=== PATIENT | male | born 1975 | race African-American/Black ===

== ENCOUNTER 2016-09-12 05:52 | Emergency (ER) | payer SELFPAY ==
[~2016-09-12] VITALS: Ht 167.6 cm; Wt 77.1 kg
--- NOTE | 2016-09-12 06:13 | PHYS DOC ---
Past Medical History Past Medical History: No Pertinent History Past Surgical History: Other Additional Past Surgical Histo: left femur sx Additional Information: 1/2 pack or more per day Alcohol Use: Rarely Drug Use: Cocaine, Marijuana Adult General Chief Complaint Chief Complaint: CHEST WALL PAIN HPI HPI Patient is a 41 year old male who presents with breath, nausea vomiting diarrhea. He states his been going on for approximately a week. He was seen at [facility] on the [place] 3 days ago and had a CT angiogram that was negative at that time that was confirmed by myself. He states his shortness of breath is the same as it was before he went to [facility] ER. He states his chest pain hurts constantly and is made worse when he coughs. He states he is constantly short of breath however he is able to still smoke cigarettes with his shortness of breath. He does smoke cigarettes personally one to 2 packs per days and then for several years. He denies any family history of heart attacks. States the pain is a stress is substernal and does not radiate. Nothing makes it go away however coughing makes it worse. He states he's been having 2-3 loose stools daily for the last 2-3 days but denies any abdominal pain, denies any blood in his vomit or stools. He states he vomited once or twice because he coughs so hard it makes him vomit. He states that he was given a prescription for a pain medicine sounds like hydrocodone and another medicine from [facility] but he could not afford have these filled. Review of Systems Review of Systems Constitutional: Denies fever or chills [] Eyes: Denies change in visual acuity, redness, or eye pain [] HENT: Denies nasal congestion or sore throat [] Respiratory: Positive for cough and shortness of breath Cardiovascular: No additional information not addressed in HPI [] GI: Denies abdominal pain, nausea, vomiting, bloody stools or diarrhea [] : Denies dysuria or hematuria [] Musculoskeletal: Denies back pain or joint pain [] Integument: Denies rash or skin lesions [] Neurologic: Denies headache, focal weakness or sensory changes [] Endocrine: Denies polyuria or polydipsia [] Current Medications Current Medications Current Medications Medications (Trade) Dose Ordered Sig/Avinash Start Time Stop Time Status Last Admin Dose Admin Albuterol Sulfate (Ventolin Neb Soln) 2.5 mg 1X ONCE 09/12/16 08:00 09/12/16 08:01 DC 09/12/16 07:57 2.5 MG Methylprednisolone Sodium Succinate (Solu-Medrol 125mg Vial) 125 mg 1X ONCE 09/12/16 08:00 09/12/16 08:01 DC 09/12/16 07:59 125 MG Sodium Chloride (Iv Sodium Chloride 0.9% 1000ml Bag) 1,000 ml @ 1,000 mls/hr Q1H 09/12/16 06:15 09/12/16 07:14 DC 09/12/16 06:15 1,000 MLS/HR Allergies Allergies Allergies Coded Allergies Type Severity Reaction Last Updated Verified No Known Drug Allergies 07/31/14 No Physical Exam Physical Exam Constitutional: Well developed, well nourished, no acute distress, non-toxic appearance. [] HENT: Normocephalic, atraumatic, bilateral external ears normal, oropharynx moist, no oral exudates, nose normal. [] Eyes: PERRLA, EOMI, conjunctiva normal, no discharge. [] Neck: Normal range of motion, no tenderness, supple, no stridor. [] Cardiovascular:Heart rate regular rhythm, no murmur [] Lungs & Thorax: Bilateral breath sounds clear to auscultation, decreased at the bases [] Abdomen: Bowel sounds normal, soft, no tenderness, no masses, no pulsatile masses. [] Skin: Warm, dry, no erythema, no rash. [] Back: No tenderness, no CVA tenderness. [] Extremities: No tenderness, no cyanosis, no clubbing, ROM intact, no edema. [] Neurologic: Alert and oriented X 3, normal motor function, normal sensory function, no focal deficits noted. [] Psychologic: Affect normal, judgement normal, mood normal. [] Current Patient Data Vital Signs Vital Signs Date Time Temp Pulse Resp B/P Pulse Ox O2 Delivery O2 Flow Rate FiO2 09/12/16 07:58 96 Room Air 09/12/16 06:03 98.8 98 20 144/84 98.8 Lab Values Laboratory Tests Test 09/12/16 06:06 09/12/16 06:30 09/12/16 08:15 White Blood Count 6.5x10^3/uL (4.0-11.0) Red Blood Count 5.12x10^6/uL (4.30-5.70) Hemoglobin 15.1g/dL (13.0-17.5) Hematocrit 46.6% (39.0-53.0) Mean Corpuscular Volume 91fL (79-100) Mean Corpuscular Hemoglobin 30pg (25-35) Mean Corpuscular Hemoglobin Concent 32g/dL (31-37) Red Cell Distribution Width 14.9% (11.5-14.5) H Platelet Count 164x10^3/uL (140-400) Neutrophils (%) (Auto) 49% (31-73) Lymphocytes (%) (Auto) 34% (24-48) Monocytes (%) (Auto) 15% (0-9) H Eosinophils (%) (Auto) 1% (0-3) Basophils (%) (Auto) 1% (0-3) Neutrophils # (Auto) 3.2x10^3uL (1.8-7.7) Lymphocytes # (Auto) 2.2x10^3/uL (1.0-4.8) Monocytes # (Auto) 1.0x10^3/uL (0.0-1.1) Eosinophils # (Auto) 0.1x10^3/uL (0.0-0.7) Basophils # (Auto) 0.1x10^3/uL (0.0-0.2) Prothrombin Time 11.6SEC (11.7-14.0) L Prothrombin Time INR 0.9 (0.8-1.1) Sodium Level 147mmol/L (136-145) H Potassium Level 4.0mmol/L (3.5-5.1) Chloride Level 104mmol/L (98-107) Carbon Dioxide Level 33mmol/L (21-32) H Anion Gap 10 (6-14) Blood Urea Nitrogen 17mg/dL (8-26) Creatinine 1.0mg/dL (0.7-1.3) Estimated GFR (Cockcroft-Gault) 99.2 Glucose Level 120mg/dL (70-99) H Calcium Level 10.3mg/dL (8.5-10.1) H Magnesium Level 2.2mg/dL (1.8-2.4) Total Bilirubin 0.2mg/dL (0.2-1.0) Direct Bilirubin < 0.1mg/dL (0.0-0.2) Aspartate Amino Transferase (AST) 101U/L (15-37) H Alanine Aminotransferase (ALT) 124U/L (16-63) H Alkaline Phosphatase 113U/L (46-116) Creatine Kinase 459U/L (39-308) H Creatine Kinase MB (Mass) 1.7ng/mL (0.0-3.6) Creatine Kinase MB Relative Index 0.4% (0-4) Troponin I Quantitative < 0.017ng/mL (0.000-0.055) HR-Seh-F-Type Natriuretic Peptide 13pg/mL (0-124) Total Protein 8.1g/dL (6.4-8.2) Albumin 3.9g/dL (3.4-5.0) Lipase 242U/L (73-393) Thyroid Stimulating Hormone (TSH) 0.906uIU/mL (0.358-3.74) Urine Collection Type Unknown Urine Color Yellow Urine Clarity Turbid Urine pH 7.5 Urine Specific [place] 1.020 Urine Protein 30mg/dL (NEG-TRACE) Urine Glucose (UA) Negativemg/dL (NEG) Urine Ketones (Stick) Negativemg/dL (NEG) Urine Blood Negative (NEG) Urine Nitrite Negative (NEG) Urine Bilirubin Negative (NEG) Urine Urobilinogen Dipstick 1.0mg/dL (0.2 mg/dL) Urine Leukocyte Esterase Negative (NEG) Urine RBC 0/HPF (0-2) Urine WBC 0/HPF (0-4) Urine Squamous Epithelial Cells Few/LPF Urine Amorphous Sediment Present/HPF Urine Bacteria 0/HPF (0-FEW) O2 Saturation 97% (92-99) Arterial Blood pH 7.44 (7.35-7.45) Arterial Blood pCO2 at Patient Temp 38mmHg (35-46) Arterial Blood pO2 at Patient Temp 89mmHg (75-108) Arterial Blood HCO3 26mmol/L (21-28) Arterial Blood Base Excess 2mmol/L (-3-3) FiO2 21.0 Laboratory Tests 09/12/16 06:06 Laboratory Tests 09/12/16 06:06 EKG EKG EKG shows normal sinus rhythm with a rate of [address] elevations or T-wave inversions, normal axis, QTC 410 ms as interpreted by me. Radiology/Procedures Radiology/Procedures [facility] [address] [place] [address] IMAGING REPORT Signed PATIENT: LUCIANO WAGNER ACCOUNT: [id number] : 1975 LOCATION: ER AGE: 41 SEX: M EXAM STATUS: REG ER ORD. PHYSICIAN: GOLDIE CUENCA MD REASON: chest pain PROCEDURE: PORTABLE CHEST 1V Portable chest, 09/12/2016: History: Mid chest pain The heart size and pulmonary vascularity are normal. The lungs are clear. There is no evidence of pleural fluid. IMPRESSION: No acute cardiopulmonary abnormality is detected. DICTATED and SIGNED BY: ROLO ALMARAZ MD DATE: 09/12/16808 CC: GOLDIE CUENCA MD; NO PCP ~ Impressions: Dyspnea Nausea vomiting Diarrhea Tobacco abuse Course & Med Decision Making Course & Med Decision Making Pertinent Labs and Imaging studies reviewed. (See chart for details) EKG, chest x-ray did not show acute abdomen allergies. He does have slightly elevated LFTs and received normal saline was in the department. He is also given Solu-Medrol and a DuoNeb feels better. He is being discharged home with albuterol inhaler and prednisone. He is to follow-up with his primary care physician or go to the free clinic and does not have one. Return precautions given for worsening fevers, nausea vomiting or other concerns. ABG did not show any acute abnormalities in addition the patient was able to ambulate department and did not become hypoxic. Dragon Disclaimer Dragon Disclaimer This electronic medical record was generated, in whole or in part, using a voice recognition dictation system. Departure Departure Impression: Primary Impression: Dyspnea Disposition: 01 HOME, SELF-CARE Condition: STABLE Referrals: NO PCP (PCP) Patient Instructions: Shortness of Breath, [id number] Additional Instructions: You were seen today in the emergency department for your troubles breathing. Blood work shows your liver function tests are slightly elevated You will need follow-up with primary care physician. You likely have COPD from your continued smoking. You received breathing treatments, steroids, IV fluids and your being discharged home. Provided a prescription for prednisone and an inhaler and an antibiotic. Please follow the instructions on the prescription for these medicines. You can also purchase [id number] Claritin and Imodium AD. Claritin is for your cough and Imodium AD is for diarrhea. Urinary to follow up with your primary care physician within the next few days to have your liver function tests repeated. Return ER for worsening shortness of breath, chest pain , uncontrolled nausea vomiting diarrhea or other concerns. Scripts Azithromycin (Azithromycin Tablet)250 Mg Tablet1 Pkg PO UD #6 TAB Prov:GOLDIE CUENCA MD 09/12/16 Albuterol Sulfate (Proair Hfa Inhaler)8.5 Gm Hfa.aer.ad2 Puff INH PRN Q6HRS PRN SHORTNESS OF BREATH #1 INHALER Ref 0 Prov:GOLDIE CUENCA MD 09/12/16 Prednisone 20 Mg Tablet2 Tab PO DAILY #10 TAB Prov:GOLDIE CUENCA MD 09/12/16 GOLDIE CUENCA MD Sep 12, 2016 06:13
[2016-09-12] MEDS ORDERED: IV NORMAL SALINE 1000ML BAG 1,000 ML IV SCH (06:15)
[2016-09-12 06:38] LABS: BASO # 0.1 x10^3/uL (0.0-0.2); BASO % 1 % (0-3); EOS % 1 % (0-3); HEMATOCRIT 46.6 % (39.0-53.0); HEMOGLOBIN 15.1 g/dL (13.0-17.5); LYMPH # 2.2 x10^3/uL (1.0-4.8); LYMPH % 34 % (24-48); MEAN CORPUSCULAR HEMOGLOBIN 30 pg (25-35); MEAN CORPUSCULAR HGB CONC 32 g/dL (31-37); MEAN CORPUSCULAR VOLUME 91 fL (79-100); MONO % 15 % (0-9); NEUT % 49 % (31-73); PLATELET COUNT 164 x10^3/uL (140-400); RED BLOOD COUNT 5.12 x10^6/uL (4.30-5.70); RED CELL DISTRIBUTION WIDTH 14.9 % (11.5-14.5); WHITE BLOOD COUNT 6.5 x10^3/uL (4.0-11.0)
--- NOTE | 2016-09-12 06:39 | EKG ---
[facility] [address] [place] [address] Test Date: 2016-09-12 Test Time: 06:00:40 Pat Name: LUCIANO WAGNER Department: Room: Gender: M Machine Maintenance Repairer: : 1975 Requested By: GOLDIE CUENCA Order Number: [id number] Reading MD: Leanna Villanueva Measurements Intervals [place] Rate: 94 P: 29 SD: 136 QRS: 70 QRSD: 88 T: 20 QT: 324 QTc: 410 Interpretive Statements SINUS RHYTHM NORMAL ELECTROCARDIOGRAM Electronically Signed On 09-15-2016 12:36:25 CDT by Leanna Villanueva
[2016-09-12 06:46] LABS: INR 0.9 (0.8-1.1); PROTHROMBIN TIME PATIENT 11.6 SEC (11.7-14.0)
[2016-09-12 06:47] LABS: ANION GAP 10 (6-14); BLOOD UREA NITROGEN 17 mg/dL (8-26); CALCIUM 10.3 mg/dL (8.5-10.1); CARBON DIOXIDE 33 mmol/L (21-32); CHLORIDE 104 mmol/L (98-107); GFR 99.2; GLUCOSE 120 mg/dL (70-99); SODIUM 147 mmol/L (136-145)
[2016-09-12 06:53] LABS: ALBUMIN 3.9 g/dL (3.4-5.0); ALK PHOS 113 U/L (46-116); ALT (SGPT) 124 U/L (16-63); AST (SGOT) 101 U/L (15-37); DIRECT BILIRUBIN < 0.1 mg/dL (0.0-0.2); MAGNESIUM 2.2 mg/dL (1.8-2.4); TOTAL BILIRUBIN 0.2 mg/dL (0.2-1.0); TOTAL PROTEIN 8.1 g/dL (6.4-8.2)
[2016-09-12 06:54] LABS: BILIRUBIN,URINE NEGATIVE (NEG); GLUCOSE,URINE NEGATIVE (NEG); NITRITE,URINE NEGATIVE (NEG); PH,URINE 7.5; PROTEIN,URINE 30 mg/dL (NEG-TRACE)
--- NOTE | 2016-09-12 07:15 | RAD ---
Portable chest, 09/12/2016: History: Mid chest pain The heart size and pulmonary vascularity are normal. The lungs are clear. There is no evidence of pleural fluid. IMPRESSION: No acute cardiopulmonary abnormality is detected.
[2016-09-12 07:16] LABS: CKMB INDEX 0.4 % (0-4); CKMB MASS 1.7 ng/mL (0.0-3.6)
[2016-09-12 07:18] LABS: BACTERIA,URINE 0 /HPF (0-FEW); RBC,URINE 0 /HPF (0-2); SQUAMOUS EPITHELIAL CELL,UR FEW /LPF; WBC,URINE 0 /HPF (0-4)
[2016-09-12 08:00] VITALS: BP 136/68
[2016-09-12] MEDS ORDERED: ALBUTEROL SULFATE 2.5 MG/3 ML NEBU. NEB ONE (08:00)
[2016-09-12] MEDS ORDERED: methylPREDNISolone SOD SUCC PF 125 MG/2 ML VIAL. IV ONE (08:00)
[2016-09-12] MEDS ORDERED: PRED20TA PO (08:10)
[2016-09-12] MEDS ORDERED: PROAIR HFA8.5 GM INH (08:10)
[2016-09-12 08:17] LABS: HCO3 ABG 26 mmol/L (21-28); PCO2 ABG 38 mmHg (35-46); PH ABG 7.44 (7.35-7.45); PO2 ABG 89 mmHg (75-108); SAT O2 ABG 97 % (92-99)
[2016-09-12] MEDS ORDERED: AZIT250T6 PO (08:18)
== END 2016-09-12 08:58 | disposition home or self-care (01) ==
LOC: ER 05:52
DX: R06.00 Dyspnea, unspecified (principal); R11.2 Nausea with vomiting, unspecified; R19.7 Diarrhea, unspecified; R05 Cough; R07.2 Precordial pain; F17.210 Nicotine dependence, cigarettes, uncomplicated; F14.10 Cocaine abuse, uncomplicated; F12.10 Cannabis abuse, uncomplicated
CPT/HCPCS: 36415; 36600; 71010; 80048; 80076; 81001; 82553; 82805; 83690; 83735; 83880; 84443; 84484; 85027; 85610; 93005; 94250; 94640; 96361; 96374; 99285; J2930; J7030

== ENCOUNTER 2018-04-17 10:01 | Inpatient (IN) | payer OTHER ==
[~2018-04-17] VITALS: Ht 170.2 cm; Wt 83.6 kg
[~2018-04-17 10:01] MED LIST: AZIT250T6 PO; PRED20TA PO; PROAIR HFA8.5 GM INH
[2018-04-17] MEDS ORDERED: IV NORMAL SALINE 500ML BAG 500 ML IV PRN (10:15)
--- NOTE | 2018-04-17 10:26 | PHYS DOC ---
Past Medical History Past Medical History: No Pertinent History Past Surgical History: Other Additional Past Surgical Histo: left femur sx Alcohol Use: Rarely Drug Use: Cocaine, Marijuana Adult General Chief Complaint Chief Complaint: ABSCESS HPI HPI Patient is a 43 year old male who presents today complaining of an abscess on the right buttock area that he has had for 4-5 days. Patient is an inmate at the local longterm. He states the doctor there has tried to drain the abscess twice with no success. He states he was running a temperature of 102 this morning and was tachycardic and was sent to the ED to be evaluated and possibly be admitted for surgical consult and IV antibiotics. Patient denies any nausea vomiting. Review of Systems Review of Systems Constitutional: Reports fever Eyes: Denies change in visual acuity, redness, or eye pain [] HENT: Denies nasal congestion or sore throat [] Respiratory: Denies cough or shortness of breath [] Cardiovascular: Reports tachycardia GI: Denies abdominal pain, nausea, vomiting, bloody stools or diarrhea [] : Denies dysuria or hematuria [] Musculoskeletal: Denies back pain or joint pain [] Integument: Reports abscess to the right buttock Neurologic: Denies headache, focal weakness or sensory changes [] All other systems were reviewed and found to be within normal limits, except as documented in this note. Current Medications Current Medications Current Medications Medications (Trade) Dose Ordered Sig/Avinash Start Time Stop Time Status Last Admin Dose Admin Acetaminophen/ Hydrocodone Bitart (Lortab 5/325) 2 tab 1X ONCE 04/17/18 10:30 04/17/18 10:31 DC 04/17/18 10:36 2 TAB Info (CONTRAST GIVEN -- Rx MONITORING) 1 each PRN DAILY PRN 04/17/18 11:00 04/19/18 10:59 Iohexol (Omnipaque 300 Mg/ml) 75 ml 1X ONCE 04/17/18 10:45 04/17/18 10:46 DC 04/17/18 10:45 75 ML Piperacillin Sod/ Tazobactam Sod 4.5 gm/Sodium Chloride 100 ml @ 200 mls/hr 1X ONCE 04/17/18 10:45 04/17/18 11:14 DC 04/17/18 11:27 200 MLS/HR Sodium Chloride 500 ml @ 1,000 mls/hr PRN Q30MIN PRN 04/17/18 10:15 Vancomycin HCl (Vanco Per Pharmacy) 1 each PRN DAILY PRN 04/17/18 10:15 UNV Vancomycin HCl 2 gm/Sodium Chloride 500 ml @ 250 mls/hr 1X ONCE 04/17/18 10:45 04/17/18 12:44 04/17/18 12:09 250 MLS/HR Allergies Allergies Allergies Coded Allergies Type Severity Reaction Last Updated Verified No Known Drug Allergies 07/31/14 No Physical Exam Physical Exam Constitutional: Well developed, well nourished, no acute distress, non-toxic appearance. [] HENT: Normocephalic, atraumatic, bilateral external ears normal, oropharynx moist, no oral exudates, nose normal. [] Eyes: PERRLA, EOMI, conjunctiva normal, no discharge. [] Neck: Normal range of motion, no tenderness, supple, no stridor. [] Cardiovascular:Heart rate regular rhythm, no murmur [] Lungs & Thorax: Bilateral breath sounds clear to auscultation [] Abdomen: Bowel sounds normal, soft, no tenderness, no masses, no pulsatile masses. [] Skin: Warm, dry, right inner buttock with a mildly indurated area there is a scab over the buttock. The indurated area is warm to the touch, very tender but not fluctuant. Back: No tenderness, no CVA tenderness. [] Extremities: No tenderness, no cyanosis, no clubbing, ROM intact, no edema. [] Neurologic: Alert and oriented X 3, normal motor function, normal sensory function, no focal deficits noted. [] Psychologic: Affect normal, judgement normal, mood normal. [] Current Patient Data Vital Signs Vital Signs Date Time Temp Pulse Resp B/P (MAP) Pulse Ox O2 Delivery O2 Flow Rate FiO2 04/17/18 12:05 108 19 126/72 (90) 98 04/17/18 10:10 98.5 Room Air 98.5 Lab Values Laboratory Tests Test 04/17/18 10:30 04/17/18 11:17 White Blood Count 24.3 x10^3/uL (4.0-11.0) H Red Blood Count 4.91 x10^6/uL (4.30-5.70) Hemoglobin 14.4 g/dL (13.0-17.5) Hematocrit 41.7 % (39.0-53.0) Mean Corpuscular Volume 85 fL (79-100) Mean Corpuscular Hemoglobin 29 pg (25-35) Mean Corpuscular Hemoglobin Concent 35 g/dL (31-37) Red Cell Distribution Width 12.5 % (11.5-14.5) Platelet Count 174 x10^3/uL (140-400) Neutrophils (%) (Auto) 85 % (31-73) H Lymphocytes (%) (Auto) 7 % (24-48) L Monocytes (%) (Auto) 8 % (0-9) Eosinophils (%) (Auto) 0 % (0-3) Basophils (%) (Auto) 0 % (0-3) Neutrophils # (Auto) 20.6 x10^3uL (1.8-7.7) H Lymphocytes # (Auto) 1.7 x10^3/uL (1.0-4.8) Monocytes # (Auto) 2.0 x10^3/uL (0.0-1.1) H Eosinophils # (Auto) 0.0 x10^3/uL (0.0-0.7) Basophils # (Auto) 0.1 x10^3/uL (0.0-0.2) Segmented Neutrophils % 83 % (35-66) H Band Neutrophils % 6 % (0-9) Lymphocytes % 5 % (24-48) L Monocytes % 6 % (0-10) Platelet Estimate Adequate (ADEQUATE) Prothrombin Time 16.0 SEC (11.7-14.0) H Prothrombin Time INR 1.3 (0.8-1.1) H PTT 35 SEC (24-38) Sodium Level 138 mmol/L (136-145) Potassium Level 3.3 mmol/L (3.5-5.1) L Chloride Level 103 mmol/L (98-107) Carbon Dioxide Level 22 mmol/L (21-32) Anion Gap 13 (6-14) Blood Urea Nitrogen 8 mg/dL (8-26) Creatinine 1.1 mg/dL (0.7-1.3) Estimated GFR (Cockcroft-Gault) 88.0 BUN/Creatinine Ratio 7 (6-20) Glucose Level 120 mg/dL (70-99) H Calcium Level 9.2 mg/dL (8.5-10.1) Total Bilirubin 0.8 mg/dL (0.2-1.0) Aspartate Amino Transferase (AST) 14 U/L (15-37) L Alanine Aminotransferase (ALT) 21 U/L (16-63) Alkaline Phosphatase 79 U/L (46-116) Total Protein 7.7 g/dL (6.4-8.2) Albumin 3.1 g/dL (3.4-5.0) L Albumin/Globulin Ratio 0.7 (1.0-1.7) L Procalcitonin 0.61 ng/mL (0.00-0.10) H Lactic Acid Level 3.1 mmol/L (0.4-2.0) H Laboratory Tests 04/17/18 10:30 Laboratory Tests 04/17/18 10:30 EKG EKG [] Radiology/Procedures Radiology/Procedures []PROCEDURE: CT PELVIS W/CONTRAST CT PELVIS W/CONTRAST Indication: Right buttock mass/abscess Technique: Postcontrast CT imaging was performed of the pelvis, multiplanar reconstruction images submitted. No oral contrast was given. One or more of the following individualized dose reduction techniques were utilized for this examination: 1. Automated exposure control 2. Adjustment of the mA and/or kV according to patient size 3. Use of iterative reconstruction technique. Contrast: 75 cc Omnipaque 300 Comparison: None Findings: There is asymmetric hazy and strandy change of the fat of the medial right thigh proximally although not fully included inferiorly, no discrete drainable fluid collection in this region. No discrete perirectal fluid collection/abscess is identified. There is no intrapelvic free fluid or fluid collection. There is no free air of the visualized pelvis. Visualized bowel is not significantly dilated. There are inguinal nodes bilaterally, largest on the right about 1.2 cm short axis dimension. There are also some subcentimeter nodes along the iliac chains. There is intramedullary debora of the left femur which is not fully evaluated. There is fat-containing umbilical hernia, no bowel, neck about 1.5 cm. There is mild osteoarthritic change of the hips. IMPRESSION: 1. There is nonspecific inflammatory change centered in the fat of the medial right thigh proximally without discrete drainable fluid collection/abscess, inferior extent not fully included. 2. There are nonspecific inguinal nodes bilaterally, largest on the right, nonspecific and possibly reactive although clinical follow-up recommended. 3. There is a small fat-containing umbilical hernia. Electronically signed by: Ellen Bennett MD (04/17/2018 11:48 AM) [id number] DICTATED and SIGNED BY: ELLEN BENNETT MD DATE: 04/17/18 1141 Course & Med Decision Making Course & Med Decision Making Pertinent Labs and Imaging studies reviewed. (See chart for details) This is a 43-year-old male patient residing at the local longterm who presents today with an abscess on the right buttock for 4-5 days. The abscess has been drained twice with no success. Patient was running a fever in longterm today. Patient was started on sepsis protocol on arrival to the ED. WBC 24.3 with a left shift, CMP with no acute findings, lactic 3.1. Vitals on arrival temperature 98.5 patient was given antipyretic prior to coming to the ED , heart rate 121, respiration 18 on room air, O2 sats 99% on room air, blood pressure 141/73. CT of the pelvic was noted for- nonspecific inflammatory change centered in the fat of the medial right thigh proximally without discrete drainable fluid collection/abscess, inferior extent not fully included. Patient was given Zosyn and vancomycin. 12:[address] Euceda who accepted patient for admission 12:[address] Aquino who will follow-up with patient Routine consult placed for infectious disease Dragon Disclaimer Dragon Disclaimer This electronic medical record was generated, in whole or in part, using a voice recognition dictation system. 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
[2018-04-17] MEDS ORDERED: HYDROcodone/APAP 5/325MG 1 TAB TABLET PO ONE (10:30)
[2018-04-17 10:42] LABS: BASO # 0.1 x10^3/uL (0.0-0.2); BASO % 0 % (0-3); EOS % 0 % (0-3); HEMATOCRIT 41.7 % (39.0-53.0); HEMOGLOBIN 14.4 g/dL (13.0-17.5); LYMPH # 1.7 x10^3/uL (1.0-4.8); LYMPH % 7 % (24-48); MEAN CORPUSCULAR HEMOGLOBIN 29 pg (25-35); MEAN CORPUSCULAR HGB CONC 35 g/dL (31-37); MEAN CORPUSCULAR VOLUME 85 fL (79-100); MONO % 8 % (0-9); NEUT # 20.6 x10^3uL (1.8-7.7); NEUT % 85 % (31-73); PLATELET COUNT 174 x10^3/uL (140-400); RED BLOOD COUNT 4.91 x10^6/uL (4.30-5.70); RED CELL DISTRIBUTION WIDTH 12.5 % (11.5-14.5); WHITE BLOOD COUNT 24.3 x10^3/uL (4.0-11.0)
[2018-04-17] MEDS: IV NORMAL SALINE 1000ML BAG 2,040 ML IV SCH ×10 (10:42→19:30)
[2018-04-17] MEDS ORDERED: VANCOMYCIN 2 GM in IV NORMAL SALINE 500ML BAG 500 ML IV ONE (10:45)
[2018-04-17] MEDS ORDERED: PIPERACILLIN/TAZOBACTAM 4.5 GM in IV NORMAL SALINE 100ML 100 ML IV ONE (10:45)
[2018-04-17] MEDS ORDERED: IOHEXOL 300 MG/ML 100ML VIAL. IV ONE (10:45)
[2018-04-17 10:49] LABS: CALCIUM 9.2 mg/dL (8.5-10.1); CREATININE 1.1 mg/dL (0.7-1.3); POTASSIUM 3.3 mmol/L (3.5-5.1)
[2018-04-17 10:56] LABS: ALBUMIN 3.1 g/dL (3.4-5.0); ALBUMIN/GLOBULIN RATIO 0.7 (1.0-1.7); TOTAL BILIRUBIN 0.8 mg/dL (0.2-1.0); TOTAL PROTEIN 7.7 g/dL (6.4-8.2)
[2018-04-17] MEDS ORDERED: CONTRAST GIVEN. MC PRN (11:00)
[2018-04-17 11:11] LABS: % BANDS 6 % (0-9); % LYMPHS 5 % (24-48); % MONOS 6 % (0-10); % SEGS 83 % (35-66)
[2018-04-17 11:12] LABS: PLT ESTIMATE ADEQUATE (ADEQUATE)
--- NOTE | 2018-04-17 11:52 | RAD ---
CT PELVIS W/CONTRAST Indication: Right buttock mass/abscess Technique: Postcontrast CT imaging was performed of the pelvis, multiplanar reconstruction images submitted. No oral contrast was given. One or more of the following individualized dose reduction techniques were utilized for this examination: 1. Automated exposure control 2. Adjustment of the mA and/or kV according to patient size 3. Use of iterative reconstruction technique. Contrast: 75 cc Omnipaque 300 Comparison: None Findings: There is asymmetric hazy and strandy change of the fat of the medial right thigh proximally although not fully included inferiorly, no discrete drainable fluid collection in this region. No discrete perirectal fluid collection/abscess is identified. There is no intrapelvic free fluid or fluid collection. There is no free air of the visualized pelvis. Visualized bowel is not significantly dilated. There are inguinal nodes bilaterally, largest on the right about 1.2 cm short axis dimension. There are also some subcentimeter nodes along the iliac chains. There is intramedullary debora of the left femur which is not fully evaluated. There is fat-containing umbilical hernia, no bowel, neck about 1.5 cm. There is mild osteoarthritic change of the hips. IMPRESSION: 1. There is nonspecific inflammatory change centered in the fat of the medial right thigh proximally without discrete drainable fluid collection/abscess, inferior extent not fully included. 2. There are nonspecific inguinal nodes bilaterally, largest on the right, nonspecific and possibly reactive although clinical follow-up recommended. 3. There is a small fat-containing umbilical hernia. Electronically signed by: Rajendra Hernandez MD (04/17/2018 11:48 AM) [id number]
[2018-04-17] MEDS ORDERED: ONDANSETRON PF 4 MG/2 ML VIAL. IV PRN ×2 (12:30→14:45)
[2018-04-17] MEDS ORDERED: ACETAMINOPHEN 325 MG TABLET. PO PRN ×2 (12:30→14:45)
[2018-04-17] MEDS ORDERED: IV NORMAL SALINE 1000ML BAG 1,000 ML IV ONE (12:30)
--- NOTE | 2018-04-17 12:33 | PDOC2 ---
CONSULT Date of Consult Date of Consult DATE: 04/17/18 TIME: 12:29 Reason for Consult Reason for Consult: Gluteal abscess Identification/Chief Complaint Chief Complaint Left perineum pain Source Source: Patient History of Present Illness Reason for Visit: 43-year-old male who's had about a 4 day history of worsening pain in the left perineal area with some drainage he's had a couple attempts within the assisted system by physician to incise and drain this area without success continues to get worse Past Medical History Cardiovascular: No pertinent hx Pulmonary: No pertinent hx GI: No pertinent hx Heme/Onc: No pertinent hx Hepatobiliary: No pertinent hx Psych: No pertinent hx Rheumatologic: No pertinent hx Infectious disease: No pertinent hx ENT: No pertinent hx Renal/: No pertinent hx Endocrine: No pertinent hx Dermatology: No pertinent hx Past Surgical History Past Surgical History: No pertinent history Family History Family History: Heart Disease Social History ALCOHOL: occassional Drugs: None Current Medications Current Medications Current Medications Sodium Chloride 2,040 ml @ 2,040 mls/hr Q1H IV Last administered on at 10:42; Start 04/17/18 at 10:30 Sodium Chloride 500 ml @ 1,000 mls/hr PRN Q30MIN PRN IV SEE COMMENTS; Start 04/17/18 at 10:15 Vancomycin HCl (Vanco Per Pharmacy) 1 each PRN DAILY PRN [facility] SEE COMMENTS; Start 04/17/18 at 10:15; Status UNV Piperacillin Sod/ Tazobactam Sod 4.5 gm/Sodium Chloride 100 ml @ 200 mls/hr Q6HRS IV ; Start 04/17/18 at 12:00; Status UNV Acetaminophen/ Hydrocodone Bitart (Lortab 5/325) 2 tab 1X ONCE PO Last administered on 04/17/18at 10:36; Start 04/17/18 at 10:30; Stop 04/17/18 at 10 :31; Status DC Vancomycin HCl 2 gm/Sodium Chloride 500 ml @ 250 mls/hr 1X ONCE IV Last administered on 04/17/18at 12:09; Start 04/17/18 at 10:45; Stop 04/17/18 at 12 :44 Piperacillin Sod/ Tazobactam Sod 4.5 gm/Sodium Chloride 100 ml @ 200 mls/hr 1X ONCE IV Last administered on 04/17/18at 11:27; Start 04/17/18 at 10:45; Stop 04/17/18 at 11:14; Status DC Iohexol (Omnipaque 300 Mg/ml) 75 ml 1X ONCE IV Last administered on at 10:45; Start 04/17/18 at 10:45; Stop 04/17/18 at 10:46; Status DC Info (CONTRAST GIVEN -- Rx MONITORING) 1 each PRN DAILY PRN [facility] SEE COMMENTS; Start 04/17/18 at 11:00; Stop 04/19/18 at 10:59 Ondansetron HCl (Zofran) 4 mg PRN Q8HRS PRN IV NAUSEA/VOMITING; Start at 12:30; Stop 04/18/18 at 12:29; Status UNV Morphine Sulfate (Morphine Sulfate) 4 mg PRN Q2HR PRN IV PAIN; Start 04/17/18 at 12:30; Stop 04/18/18 at 12:29; Status UNV Acetaminophen (Tylenol) 650 mg PRN Q4HRS PRN PO FEVER; Start 04/17/18 at 12:30 ; Stop 04/18/18 at 12:29; Status UNV Sodium Chloride 1,000 ml @ 125 mls/hr 1X ONCE IV ; Start 04/17/18 at 12:30; Stop 04/17/18 at 20:29; Status UNV Active Scripts Active Azithromycin Tablet (Azithromycin) 250 Mg Tablet 1 Pkg PO UD Proair Hfa Inhaler (Albuterol Sulfate) 8.5 Gm Hfa.aer.ad 2 Puff INH PRN Q6HRS PRN Prednisone 20 Mg Tablet 2 Tab PO DAILY Allergies Allergies: Coded Allergies: No Known Drug Allergies (Unverified , 07/31/14) ROS Gastrointestinal: Yes Other (peritoneum pain) Physical Exam General: Alert, Oriented X3, Cooperative, moderate distress HEENT: Atraumatic, PERRLA, EOMI Lungs: Clear to auscultation, Normal air movement Heart: Regular rate, No murmurs Abdomen: Normal bowel sounds, Soft, No tenderness Extremities: No clubbing, No edema Skin: Other (area in the perineum by 4 x 4 centimeters erythematous painful to palpation) Vitals VITALS Vital Signs Date Time Temp Pulse Resp B/P (MAP) Pulse Ox O2 Delivery O2 Flow Rate FiO2 04/17/18 12:05 108 19 126/72 (90) 98 04/17/18 10:10 98.5 Room Air 98.5 Labs Labs Laboratory Tests Test 04/17/18 10:30 04/17/18 11:17 White Blood Count 24.3 x10^3/uL (4.0-11.0) Red Blood Count 4.91 x10^6/uL (4.30-5.70) Hemoglobin 14.4 g/dL (13.0-17.5) Hematocrit 41.7 % (39.0-53.0) Mean Corpuscular Volume 85 fL (79-100) Mean Corpuscular Hemoglobin 29 pg (25-35) Mean Corpuscular Hemoglobin Concent 35 g/dL (31-37) Red Cell Distribution Width 12.5 % (11.5-14.5) Platelet Count 174 x10^3/uL (140-400) Neutrophils (%) (Auto) 85 % (31-73) Lymphocytes (%) (Auto) 7 % (24-48) Monocytes (%) (Auto) 8 % (0-9) Eosinophils (%) (Auto) 0 % (0-3) Basophils (%) (Auto) 0 % (0-3) Neutrophils # (Auto) 20.6 x10^3uL (1.8-7.7) Lymphocytes # (Auto) 1.7 x10^3/uL (1.0-4.8) Monocytes # (Auto) 2.0 x10^3/uL (0.0-1.1) Eosinophils # (Auto) 0.0 x10^3/uL (0.0-0.7) Basophils # (Auto) 0.1 x10^3/uL (0.0-0.2) Segmented Neutrophils % 83 % (35-66) Band Neutrophils % 6 % (0-9) Lymphocytes % 5 % (24-48) Monocytes % 6 % (0-10) Platelet Estimate Adequate (ADEQUATE) Prothrombin Time 16.0 SEC (11.7-14.0) Prothromb Time International Ratio 1.3 (0.8-1.1) Activated Partial Thromboplast Time 35 SEC (24-38) Sodium Level 138 mmol/L (136-145) Potassium Level 3.3 mmol/L (3.5-5.1) Chloride Level 103 mmol/L (98-107) Carbon Dioxide Level 22 mmol/L (21-32) Anion Gap 13 (6-14) Blood Urea Nitrogen 8 mg/dL (8-26) Creatinine 1.1 mg/dL (0.7-1.3) Estimated GFR (Cockcroft-Gault) 88.0 BUN/Creatinine Ratio 7 (6-20) Glucose Level 120 mg/dL (70-99) Calcium Level 9.2 mg/dL (8.5-10.1) Total Bilirubin 0.8 mg/dL (0.2-1.0) Aspartate Amino Transf (AST/SGOT) 14 U/L (15-37) Alanine Aminotransferase (ALT/SGPT) 21 U/L (16-63) Alkaline Phosphatase 79 U/L (46-116) Total Protein 7.7 g/dL (6.4-8.2) Albumin 3.1 g/dL (3.4-5.0) Albumin/Globulin Ratio 0.7 (1.0-1.7) Procalcitonin 0.61 ng/mL (0.00-0.10) Lactic Acid Level 3.1 mmol/L (0.4-2.0) Laboratory Tests Test 04/17/18 10:30 04/17/18 11:17 White Blood Count 24.3 x10^3/uL (4.0-11.0) Red Blood Count 4.91 x10^6/uL (4.30-5.70) Hemoglobin 14.4 g/dL (13.0-17.5) Hematocrit 41.7 % (39.0-53.0) Mean Corpuscular Volume 85 fL (79-100) Mean Corpuscular Hemoglobin 29 pg (25-35) Mean Corpuscular Hemoglobin Concent 35 g/dL (31-37) Red Cell Distribution Width 12.5 % (11.5-14.5) Platelet Count 174 x10^3/uL (140-400) Neutrophils (%) (Auto) 85 % (31-73) Lymphocytes (%) (Auto) 7 % (24-48) Monocytes (%) (Auto) 8 % (0-9) Eosinophils (%) (Auto) 0 % (0-3) Basophils (%) (Auto) 0 % (0-3) Neutrophils # (Auto) 20.6 x10^3uL (1.8-7.7) Lymphocytes # (Auto) 1.7 x10^3/uL (1.0-4.8) Monocytes # (Auto) 2.0 x10^3/uL (0.0-1.1) Eosinophils # (Auto) 0.0 x10^3/uL (0.0-0.7) Basophils # (Auto) 0.1 x10^3/uL (0.0-0.2) Segmented Neutrophils % 83 % (35-66) Band Neutrophils % 6 % (0-9) Lymphocytes % 5 % (24-48) Monocytes % 6 % (0-10) Platelet Estimate Adequate (ADEQUATE) Prothrombin Time 16.0 SEC (11.7-14.0) Prothromb Time International Ratio 1.3 (0.8-1.1) Activated Partial Thromboplast Time 35 SEC (24-38) Sodium Level 138 mmol/L (136-145) Potassium Level 3.3 mmol/L (3.5-5.1) Chloride Level 103 mmol/L (98-107) Carbon Dioxide Level 22 mmol/L (21-32) Anion Gap 13 (6-14) Blood Urea Nitrogen 8 mg/dL (8-26) Creatinine 1.1 mg/dL (0.7-1.3) Estimated GFR (Cockcroft-Gault) 88.0 BUN/Creatinine Ratio 7 (6-20) Glucose Level 120 mg/dL (70-99) Calcium Level 9.2 mg/dL (8.5-10.1) Total Bilirubin 0.8 mg/dL (0.2-1.0) Aspartate Amino Transf (AST/SGOT) 14 U/L (15-37) Alanine Aminotransferase (ALT/SGPT) 21 U/L (16-63) Alkaline Phosphatase 79 U/L (46-116) Total Protein 7.7 g/dL (6.4-8.2) Albumin 3.1 g/dL (3.4-5.0) Albumin/Globulin Ratio 0.7 (1.0-1.7) Procalcitonin 0.61 ng/mL (0.00-0.10) Lactic Acid Level 3.1 mmol/L (0.4-2.0) Images Images CT scan shows extensive inflammatory reaction in this area the left peritoneum no discrete drainable abscess by CT scan Assessment/Plan Assessment/Plan Peritoneum abscess left side plan for incision and drainage VICK VALLE MD Apr 17, 2018 12:33
[2018-04-17] MEDS ORDERED: LIDOCAINE 2% PF Vial for OR 5 ML VIAL. ONE (12:43)
[2018-04-17] MEDS ORDERED: PROPOFOL 20 ML IV ONE (12:43)
[2018-04-17] MEDS ORDERED: fentaNYL PF VIAL 100 MCG/2 ML VIAL ONE (12:44)
[2018-04-17] MEDS ORDERED: ROCURONIUM 50 MG/5 ML VIAL. ONE (12:44)
[2018-04-17 13:00] VITALS: BP 118/67
[2018-04-17] MEDS ORDERED: IV RINGERS,LACTATED 1000ML 1,000 ML IV SCH (13:29)
[2018-04-17] MEDS ORDERED: MORPHINE SULFATE 2 MG/ML VIAL. IV PRN (13:30)
[2018-04-17] MEDS ORDERED: fentaNYL PF VIAL 100 MCG/2 ML VIAL IV PRN ×2 (13:30)
[2018-04-17] MEDS ORDERED: HYDROmorphone 2 MG/ML VIAL IV PRN (13:30)
[2018-04-17] MEDS ORDERED: LIDOCAINE 1% PF 2 ML VIAL. ID PRN (13:30)
[2018-04-17] MEDS ORDERED: PROCHLORPERAZINE 10 MG/2 ML VIAL. IV PRN (13:30)
--- NOTE | 2018-04-17 13:50 | PDOC ---
Infectious Disease Note Vital Sign Vital Signs Vital Signs Date Time Temp Pulse Resp B/P (MAP) Pulse Ox O2 Delivery O2 Flow Rate FiO2 04/17/18 13:00 98.3 100 16 118/67 (84) 95 Room Air 98.3 Labs Lab Laboratory Tests Test 04/17/18 10:30 04/17/18 11:17 White Blood Count 24.3 x10^3/uL (4.0-11.0) Red Blood Count 4.91 x10^6/uL (4.30-5.70) Hemoglobin 14.4 g/dL (13.0-17.5) Hematocrit 41.7 % (39.0-53.0) Mean Corpuscular Volume 85 fL (79-100) Mean Corpuscular Hemoglobin 29 pg (25-35) Mean Corpuscular Hemoglobin Concent 35 g/dL (31-37) Red Cell Distribution Width 12.5 % (11.5-14.5) Platelet Count 174 x10^3/uL (140-400) Neutrophils (%) (Auto) 85 % (31-73) Lymphocytes (%) (Auto) 7 % (24-48) Monocytes (%) (Auto) 8 % (0-9) Eosinophils (%) (Auto) 0 % (0-3) Basophils (%) (Auto) 0 % (0-3) Neutrophils # (Auto) 20.6 x10^3uL (1.8-7.7) Lymphocytes # (Auto) 1.7 x10^3/uL (1.0-4.8) Monocytes # (Auto) 2.0 x10^3/uL (0.0-1.1) Eosinophils # (Auto) 0.0 x10^3/uL (0.0-0.7) Basophils # (Auto) 0.1 x10^3/uL (0.0-0.2) Segmented Neutrophils % 83 % (35-66) Band Neutrophils % 6 % (0-9) Lymphocytes % 5 % (24-48) Monocytes % 6 % (0-10) Platelet Estimate Adequate (ADEQUATE) Prothrombin Time 16.0 SEC (11.7-14.0) Prothromb Time International Ratio 1.3 (0.8-1.1) Activated Partial Thromboplast Time 35 SEC (24-38) Sodium Level 138 mmol/L (136-145) Potassium Level 3.3 mmol/L (3.5-5.1) Chloride Level 103 mmol/L (98-107) Carbon Dioxide Level 22 mmol/L (21-32) Anion Gap 13 (6-14) Blood Urea Nitrogen 8 mg/dL (8-26) Creatinine 1.1 mg/dL (0.7-1.3) Estimated GFR (Cockcroft-Gault) 88.0 BUN/Creatinine Ratio 7 (6-20) Glucose Level 120 mg/dL (70-99) Calcium Level 9.2 mg/dL (8.5-10.1) Total Bilirubin 0.8 mg/dL (0.2-1.0) Aspartate Amino Transf (AST/SGOT) 14 U/L (15-37) Alanine Aminotransferase (ALT/SGPT) 21 U/L (16-63) Alkaline Phosphatase 79 U/L (46-116) Total Protein 7.7 g/dL (6.4-8.2) Albumin 3.1 g/dL (3.4-5.0) Albumin/Globulin Ratio 0.7 (1.0-1.7) Procalcitonin 0.61 ng/mL (0.00-0.10) Lactic Acid Level 3.1 mmol/L (0.4-2.0) Objective Assessment Sepsis Leukocytosis Right buttock abscess Lactic acidosis Plan Plan of Care Cont Vanc/Zosyn Dose Clinda F/u labs and cults Await I and D Thank you # [phone] NIKITA BURNETT MD Apr 17, 2018 13:50
[2018-04-17] MEDS ORDERED: BUPIVAC MPF-EPI 0.5%-1:200000 30 ML VIAL. ONE (13:53)
[2018-04-17] MEDS: MORPHINE SULFATE 4 MG/ML VIAL. IV PRN ×2 (13:58→20:50)
[2018-04-17] MEDS: VANCOMYCIN PER PHARMACY MC PRN ×2 (14:08→14:17)
[2018-04-17] MEDS ORDERED: traMADol 50 MG TABLET PO PRN (14:45)
[2018-04-17] MEDS ORDERED: DOCUSATE SODIUM 100 MG CAPSULE. PO PRN (14:45)
[2018-04-17] MEDS: IV NORMAL SALINE 1000ML BAG 1,000 ML IV SCH (14:45)
--- NOTE | 2018-04-17 14:52 | PDOC1 ---
History and Physical Date of Admission Date of Admission 04/17/18 Identification/Chief Complaint Chief Complaint right buttock infection Source Source: Chart review, Patient History of Present Illness History of Present Illness HPI HPI Patient is a 43 year old male who presents today complaining of an abscess on the right buttock area. PT is from [facility]. He said he has had right buttock pain, swelling, some white discharge for 5ds, with T 102, CHills daily. He denies injury or bug biten. The [facility] doc tried to drain the abscess today but failed, sent him here. no abx given in the [facility]. Pt has nausea, watery BM daily, no vomiting, no cough, sob, or chest pain. CT didnot show abscess. wbc 24, LA 3. HR 110S Past Medical History Cardiovascular: No pertinent hx Pulmonary: No pertinent hx GI: No pertinent hx Heme/Onc: No pertinent hx Hepatobiliary: No pertinent hx Psych: No pertinent hx Rheumatologic: No pertinent hx Infectious disease: No pertinent hx ENT: No pertinent hx Renal/: No pertinent hx Endocrine: No pertinent hx Dermatology: No pertinent hx Past Surgical History Past Surgical History: No pertinent history Family History Family History: Heart Disease Social History Smoke: No ALCOHOL: occassional Drugs: None Current Problem List Problem List Problems Medical Problems: (1) Tachycardia Status: Acute Current Medications Current Medications Current Medications Medications (Trade) Dose Ordered Sig/Avinash Start Time Stop Time Status Last Admin Dose Admin Acetaminophen (Tylenol) 650 mg PRN Q4HRS PRN 04/17/18 12:30 04/18/18 12:29 Acetaminophen/ Hydrocodone Bitart (Lortab 5/325) 2 tab 1X ONCE 04/17/18 10:30 04/17/18 10:31 DC 04/17/18 10:36 2 TAB Clindamycin Phosphate 50 ml @ 100 mls/hr Q8HRS 04/17/18 14:00 Fentanyl Citrate (Fentanyl 2ml Vial) 50 mcg PRN Q5MIN PRN 04/17/18 13:30 04/18/18 13:29 Hydromorphone HCl (Dilaudid) 0.5 mg PRN Q10MIN PRN 04/17/18 13:30 04/18/18 13:29 Info (CONTRAST GIVEN -- Rx MONITORING) 1 each PRN DAILY PRN 04/17/18 11:00 04/19/18 10:59 Iohexol (Omnipaque 300 Mg/ml) 75 ml 1X ONCE 04/17/18 10:45 04/17/18 10:46 DC 04/17/18 10:45 75 ML Lidocaine HCl (Lidocaine Pf 2% Vial) 5 ml STK-MED ONCE 04/17/18 12:43 04/17/18 12:44 DC Lidocaine HCl (Xylocaine-Mpf 1% 2ml Vial) 2 ml 1X PRN PRN 04/17/18 13:30 04/18/18 13:29 Morphine Sulfate (Morphine Sulfate) 1 mg PRN Q10MIN PRN 04/17/18 13:30 04/18/18 13:29 Ondansetron HCl (Zofran) 4 mg PRN Q8HRS PRN 04/17/18 12:30 04/18/18 12:29 Piperacillin Sod/ Tazobactam Sod 3.375 gm/Sodium Chloride 50 ml @ 100 mls/hr Q6HRS 04/17/18 18:00 Piperacillin Sod/ Tazobactam Sod 4.5 gm/Sodium Chloride 100 ml @ 200 mls/hr 1X ONCE 04/17/18 10:45 04/17/18 11:14 DC 04/17/18 11:27 200 MLS/HR Prochlorperazine Edisylate (Compazine) 5 mg PACU PRN PRN 04/17/18 13:30 04/18/18 13:29 Propofol 20 ml @ As Directed STK-MED ONCE 04/17/18 12:43 04/17/18 12:44 DC Ringer's Solution 1,000 ml @ 30 mls/hr Q24H 04/17/18 13:29 04/18/18 01:28 Rocuronium [place] (Zemuron) 50 mg STK-MED ONCE 04/17/18 12:44 04/17/18 12:45 DC Sodium Chloride 1,000 ml @ 125 mls/hr 1X ONCE 04/17/18 12:30 04/17/18 20:29 Vancomycin HCl (Vanco Per Pharmacy) 1 each PRN DAILY PRN 04/17/18 10:15 04/17/18 14:17 1 EACH Vancomycin HCl (Vancomycin Trough Level) 1 each 1X ONCE 04/18/18 23:30 04/18/18 23:31 Vancomycin HCl 1.25 gm/Sodium Chloride 250 ml @ 167 mls/hr Q12H 04/18/18 00:00 Vancomycin HCl 2 gm/Sodium Chloride 500 ml @ 250 mls/hr 1X ONCE 04/17/18 10:45 04/17/18 12:44 DC 04/17/18 12:09 250 MLS/HR Allergies Allergies Allergies Coded Allergies Type Severity Reaction Last Updated Verified No Known Drug Allergies 07/31/14 No ROS Review of System CONSTITUTIONAL: No fever or chills EYES: No recent changes SKIN: No rash or itching CARDIOVASCULAR: No chest pain, syncope, palpitations, or edema RESPIRATORY: No SOB or cough GASTROINTESTINAL: No nausea, vomiting or abdominal pain NEUROLOGICAL: No headaches or weakness ENDOCRINE: No cold or heat intolerance GENITOURINARY: No urgency or frequency of urination MUSCULOSKELETAL: No back pain or joint pain LYMPHATICS: No enlarged lymph nodes PSYCHIATRIC: No anxiety or depression Physical Exam Physical Exam GEN.: No apparent distress. Alert and oriented. HEENT: Head is normocephalic, atraumatic NECK: Supple. LUNGS: Clear to auscultation. HEART: RRR, S1, S2 present. Peripheral pulses intact ABDOMEN: Soft, nontender. Positive bowel sounds. EXTREMITIES: medial aspect of rt thigh has a big induration, red, some small skin opening , tenderness. NEUROLOGIC: Normal speech, normal tone PSYCHIATRIC: Normal affect, normal mood. SKIN: No ulcerations Vitals Vitals Vital Signs Date Time Temp Pulse Resp B/P (MAP) Pulse Ox O2 Delivery O2 Flow Rate FiO2 04/17/18 13:58 Room Air 04/17/18 13:00 98.3 100 16 118/67 (84) 95 98.3 Labs Labs Laboratory Tests Test 04/17/18 10:30 04/17/18 11:17 White Blood Count 24.3 x10^3/uL (4.0-11.0) Red Blood Count 4.91 x10^6/uL (4.30-5.70) Hemoglobin 14.4 g/dL (13.0-17.5) Hematocrit 41.7 % (39.0-53.0) Mean Corpuscular Volume 85 fL (79-100) Mean Corpuscular Hemoglobin 29 pg (25-35) Mean Corpuscular Hemoglobin Concent 35 g/dL (31-37) Red Cell Distribution Width 12.5 % (11.5-14.5) Platelet Count 174 x10^3/uL (140-400) Neutrophils (%) (Auto) 85 % (31-73) Lymphocytes (%) (Auto) 7 % (24-48) Monocytes (%) (Auto) 8 % (0-9) Eosinophils (%) (Auto) 0 % (0-3) Basophils (%) (Auto) 0 % (0-3) Neutrophils # (Auto) 20.6 x10^3uL (1.8-7.7) Lymphocytes # (Auto) 1.7 x10^3/uL (1.0-4.8) Monocytes # (Auto) 2.0 x10^3/uL (0.0-1.1) Eosinophils # (Auto) 0.0 x10^3/uL (0.0-0.7) Basophils # (Auto) 0.1 x10^3/uL (0.0-0.2) Segmented Neutrophils % 83 % (35-66) Band Neutrophils % 6 % (0-9) Lymphocytes % 5 % (24-48) Monocytes % 6 % (0-10) Platelet Estimate Adequate (ADEQUATE) Prothrombin Time 16.0 SEC (11.7-14.0) Prothromb Time International Ratio 1.3 (0.8-1.1) Activated Partial Thromboplast Time 35 SEC (24-38) Sodium Level 138 mmol/L (136-145) Potassium Level 3.3 mmol/L (3.5-5.1) Chloride Level 103 mmol/L (98-107) Carbon Dioxide Level 22 mmol/L (21-32) Anion Gap 13 (6-14) Blood Urea Nitrogen 8 mg/dL (8-26) Creatinine 1.1 mg/dL (0.7-1.3) Estimated GFR (Cockcroft-Gault) 88.0 BUN/Creatinine Ratio 7 (6-20) Glucose Level 120 mg/dL (70-99) Calcium Level 9.2 mg/dL (8.5-10.1) Total Bilirubin 0.8 mg/dL (0.2-1.0) Aspartate Amino Transf (AST/SGOT) 14 U/L (15-37) Alanine Aminotransferase (ALT/SGPT) 21 U/L (16-63) Alkaline Phosphatase 79 U/L (46-116) Total Protein 7.7 g/dL (6.4-8.2) Albumin 3.1 g/dL (3.4-5.0) Albumin/Globulin Ratio 0.7 (1.0-1.7) Procalcitonin 0.61 ng/mL (0.00-0.10) Lactic Acid Level 3.1 mmol/L (0.4-2.0) Laboratory Tests Test 04/17/18 10:30 04/17/18 11:17 White Blood Count 24.3 x10^3/uL (4.0-11.0) Red Blood Count 4.91 x10^6/uL (4.30-5.70) Hemoglobin 14.4 g/dL (13.0-17.5) Hematocrit 41.7 % (39.0-53.0) Mean Corpuscular Volume 85 fL (79-100) Mean Corpuscular Hemoglobin 29 pg (25-35) Mean Corpuscular Hemoglobin Concent 35 g/dL (31-37) Red Cell Distribution Width 12.5 % (11.5-14.5) Platelet Count 174 x10^3/uL (140-400) Neutrophils (%) (Auto) 85 % (31-73) Lymphocytes (%) (Auto) 7 % (24-48) Monocytes (%) (Auto) 8 % (0-9) Eosinophils (%) (Auto) 0 % (0-3) Basophils (%) (Auto) 0 % (0-3) Neutrophils # (Auto) 20.6 x10^3uL (1.8-7.7) Lymphocytes # (Auto) 1.7 x10^3/uL (1.0-4.8) Monocytes # (Auto) 2.0 x10^3/uL (0.0-1.1) Eosinophils # (Auto) 0.0 x10^3/uL (0.0-0.7) Basophils # (Auto) 0.1 x10^3/uL (0.0-0.2) Segmented Neutrophils % 83 % (35-66) Band Neutrophils % 6 % (0-9) Lymphocytes % 5 % (24-48) Monocytes % 6 % (0-10) Platelet Estimate Adequate (ADEQUATE) Prothrombin Time 16.0 SEC (11.7-14.0) Prothromb Time International Ratio 1.3 (0.8-1.1) Activated Partial Thromboplast Time 35 SEC (24-38) Sodium Level 138 mmol/L (136-145) Potassium Level 3.3 mmol/L (3.5-5.1) Chloride Level 103 mmol/L (98-107) Carbon Dioxide Level 22 mmol/L (21-32) Anion Gap 13 (6-14) Blood Urea Nitrogen 8 mg/dL (8-26) Creatinine 1.1 mg/dL (0.7-1.3) Estimated GFR (Cockcroft-Gault) 88.0 BUN/Creatinine Ratio 7 (6-20) Glucose Level 120 mg/dL (70-99) Calcium Level 9.2 mg/dL (8.5-10.1) Total Bilirubin 0.8 mg/dL (0.2-1.0) Aspartate Amino Transf (AST/SGOT) 14 U/L (15-37) Alanine Aminotransferase (ALT/SGPT) 21 U/L (16-63) Alkaline Phosphatase 79 U/L (46-116) Total Protein 7.7 g/dL (6.4-8.2) Albumin 3.1 g/dL (3.4-5.0) Albumin/Globulin Ratio 0.7 (1.0-1.7) Procalcitonin 0.61 ng/mL (0.00-0.10) Lactic Acid Level 3.1 mmol/L (0.4-2.0) VTE Prophylaxis Ordered VTE Prophylaxis Devices: Yes VTE Pharmacological Prophylaxi: No Assessment/Plan Assessment/Plan rt buttock cellulitis/abscess from [facility] h/o drug use with cocaine, marijuana sepsis hypokalemia mild malnutrition plan: fu with Sx, i and d planed, npo for now ivf fu with id, on zosyn, vanco, clinda. fu cx after sx. pain control replete K dvt ppx after sx, tmr? ELMIRA GARZON MD Apr 17, 2018 14:52
[2018-04-17 15:00] VITALS: BP_SYST 123; BP_SYST 97; BP_DIAS 67; BP_DIAS 83
[2018-04-17] MEDS ORDERED: POTASSIUM CHLORIDE 20 MEQ TABLET.ER. PO ONE (15:00)
[2018-04-17] MEDS ORDERED: DEXAMETHASONE SOD PHOS 20 MG/5 ML VIAL. ONE (15:49)
[2018-04-17] MEDS ORDERED: SEVOFLURANE 16 TO 30 MINUTES. IH ONE (15:49)
[2018-04-17] MEDS ORDERED: ONDANSETRON PF 4 MG/2 ML VIAL. ONE (15:50)
[2018-04-17] MEDS: CLINDAMYCIN 600MG PREMIX 50 ML IV SCH ×2 (15:52→21:44)
--- NOTE | 2018-04-17 16:09 | PDOC4 ---
Operative Note Operative Note Date: 04/17/2018 Preoperative diagnosis: Right perirectal abscess Postoperative diagnosis: The same Procedure: Incision and drainage of right perirectal abscess Surgeon: Miles Specimen: Cultures Dictation: Patient is a 43-year-old male who last 4 days having enlarging mass in the right perirectal area consistent with a abscess procedure of incision and drainage of abscess was explained to the patient detail was benefits were also discussed including bleeding infection alternatives to this procedure also discussed with the patient seemed understanding gave both verbal and written consent had procedure performed. Patient was taken to the operating room placed in supine position general anesthesia was initiated once patient was asleep and intubated is placed in low lithotomy and his peritoneum was prepped and draped in usual sterile fashion with Betadine scrub and solution. Area over the mass in the right perirectal space was incised with a 11 blade scalpel. Some purulent material was expressed this was cultured the wound was then irrigated with copious amounts of normal saline. Wound was then packed with half-inch iodoform Nu Gauze rest with 4 x 4's. The patient was waken expanded in the operative room taken recovery in stable condition all sponge instrument needle counts listed as correct estimate blood loss 10 mL VICK VALLE MD Apr 17, 2018 16:09
[2018-04-17] MEDS: oxyCODONE/APAP 5/325 1 TAB TABLET PO PRN ×2 (16:52→23:49)
[2018-04-17] MEDS: PIPERACILLIN/TAZOBACTAM 3.375 GM in IV NORMAL SALINE 50ML 50 ML IV SCH (18:36)
[2018-04-17 19:00] VITALS: BP 126/77
[2018-04-17 23:00] VITALS: BP 123/86
--- NOTE | 2018-04-17 23:39 | CONS ---
DATE OF CONSULTATION: 04/17/2018 ROOM: 418. CONSULTING PHYSICIAN: Sonali Toure, nurse practitioner from the Emergency Room. REASON FOR CONSULTATION: Sepsis. HISTORY OF PRESENT ILLNESS: The patient is a 43-year-old gentleman, currently in custody, who has a history of previous boils in the past. He states he normally just ruptures these without any complication. Now 4 or 5 days ago, he developed a small boil in his right buttock area, which he popped. He states he got some yellow bloody material out of it, has healed; however, there is an area below this that subsequently increased in size and became more painful. He has subjective fevers, chills, some sweats. He had headache, mild nausea, no vomiting, little bit of a cough and has been having some mild distention. He was brought to [facility] Emergency Room on and had a white count of 24.3 with ____ segs and 6 bands. Glucose was 120. Lactic acid was elevated at 3.1. Creatinine was 1.1, procalcitonin was 0.61. He underwent a CT scan of the pelvis, which showed nonspecific inflammatory change medial right thigh proximal without discrete drainable collection of the abscess and a small fat-containing umbilical hernia. He was placed on vancomycin, Zosyn and has been admitted to the hospital. He has now been evaluated by Dr. Aqunio of General Surgery and is planning to undergo an I and D. PAST MEDICAL HISTORY: Essentially negative except for previously left femur fracture repair. Denies any other complications. REVIEW OF SYSTEMS: Otherwise negative. ALLERGIES: No known drug allergies. SOCIAL HISTORY: He has a history of previous cocaine and marijuana use. Rare alcohol. Currently, he is incarcerated. FAMILY HISTORY: Noncontributory. CURRENT MEDICATIONS: Include Zosyn, vancomycin, fentanyl, Dilaudid. Other meds are available, have been reviewed in the chart. PHYSICAL EXAMINATION: VITAL SIGNS: He is afebrile. Temperature 98.3, pulse 100, respirations 16, blood pressure 118/67, satting 95% on room air. CONSTITUTIONAL: He is comfortable. He is in no acute distress. HEENT: Pupils equal and reactive. Normal conjunctivae. Oral cavity, pharynx is clear. NECK: Supple. Good range of motion. LUNGS: Clear to auscultation bilaterally. HEART: S1, S2. ABDOMEN: Mildly protuberant, soft, no guarding, no tenderness. EXTREMITIES: No clubbing, cyanosis or gross edema. SKIN: Multiple tattoos. No generalized rash. His right perineal/perirectal area has fullness and some induration, tenderness. He also has a healing scab in the area. PSYCHIATRIC: Affect is appropriate. LABORATORY DATA: White count 24.3, hemoglobin 14.4, platelets 174 with a differential as mentioned in history of present illness. Glucose 120. Normal liver function study tests. Other values reviewed in history of present illness. Urinalysis is without signs of infection. Radiology reviewed in history of present illness. IMPRESSION: 1. Sepsis. 2. Leukocytosis. 3. Right buttock abscess. 4. Lactic acidosis. RECOMMENDATIONS: Continue the vancomycin. Continue Zosyn. We will dose clindamycin. Follow up labs and cultures and await I and D. Thank you for allowing me to participate in the patient's care. Should you have any questions, please do not hesitate to contact me. NIKITA BURNETT MD DR: SEVEN/sukh JOB#: [id number] / [id number]
[2018-04-17] MEDS: MORPHINE SULFATE 2 MG/ML VIAL. IV PRN (23:49)
[2018-04-18] VITALS (7 sets, daily range): BP systolic 97–150; BP diastolic 54–84
[2018-04-18] MEDS: IV NORMAL SALINE 1000ML BAG 1,000 ML IV SCH ×5 (00:43→20:23)
[2018-04-18] MEDS: PIPERACILLIN/TAZOBACTAM 3.375 GM in IV NORMAL SALINE 50ML 50 ML IV SCH ×5 (00:44→23:34)
[2018-04-18] MEDS: VANCOMYCIN 1.25 GM in IV NORMAL SALINE 250ML 250 ML IV SCH ×4 (00:44→13:32)
[2018-04-18 04:35] LABS: BASO % 0 % (0-3); EOS % 0 % (0-3); HEMATOCRIT 39.4 % (39.0-53.0); HEMOGLOBIN 13.3 g/dL (13.0-17.5); LYMPH # 0.9 x10^3/uL (1.0-4.8); LYMPH % 4 % (24-48); MEAN CORPUSCULAR HEMOGLOBIN 29 pg (25-35); MEAN CORPUSCULAR HGB CONC 34 g/dL (31-37); MEAN CORPUSCULAR VOLUME 86 fL (79-100); MONO # 1.3 x10^3/uL (0.0-1.1); MONO % 5 % (0-9); NEUT # 22.6 x10^3uL (1.8-7.7); NEUT % 91 % (31-73); PLATELET COUNT 168 x10^3/uL (140-400); RED BLOOD COUNT 4.59 x10^6/uL (4.30-5.70); RED CELL DISTRIBUTION WIDTH 12.6 % (11.5-14.5); WHITE BLOOD COUNT 24.8 x10^3/uL (4.0-11.0)
[2018-04-18 05:03] LABS: CALCIUM 8.9 mg/dL (8.5-10.1); CREATININE 1.1 mg/dL (0.7-1.3); POTASSIUM 3.7 mmol/L (3.5-5.1)
[2018-04-18] MEDS: oxyCODONE/APAP 5/325 1 TAB TABLET PO PRN ×4 (05:47→20:23)
[2018-04-18] MEDS: CLINDAMYCIN 600MG PREMIX 50 ML IV SCH ×3 (06:28→21:59)
--- NOTE | 2018-04-18 08:36 | PDOC ---
SURGICAL PROGRESS NOTE Subjective Patient doing better does complain of some achy pains Vital Signs Vital Signs Date Time Temp Pulse Resp B/P (MAP) Pulse Ox O2 Delivery O2 Flow Rate FiO2 04/18/18 07:09 18 Room Air 04/18/18 07:00 98.1 90 126/80 (95) 97 98.1 04/17/18 16:17 10 I&O Intake and Output 04/18/18 07:00 Intake Total 1660 ml Output Total 700 ml Balance 960 ml Intake Oral 610 ml IV Total 1050 ml Output Urine Total 700 ml PATIENT HAS A CONNOR: No General: Alert, Oriented X3, Cooperative, mild distress Skin: Other (wound dressed with packing) Labs Laboratory Tests Test 04/17/18 10:30 04/17/18 11:17 04/17/18 19:00 04/18/18 03:45 White Blood Count 24.3 x10^3/uL (4.0-11.0) 24.8 x10^3/uL (4.0-11.0) Red Blood Count 4.91 x10^6/uL (4.30-5.70) 4.59 x10^6/uL (4.30-5.70) Hemoglobin 14.4 g/dL (13.0-17.5) 13.3 g/dL (13.0-17.5) Hematocrit 41.7 % (39.0-53.0) 39.4 % (39.0-53.0) Mean Corpuscular Volume 85 fL (79-100) 86 fL (79-100) Mean Corpuscular Hemoglobin 29 pg (25-35) 29 pg (25-35) Mean Corpuscular Hemoglobin Concent 35 g/dL (31-37) 34 g/dL (31-37) Red Cell Distribution Width 12.5 % (11.5-14.5) 12.6 % (11.5-14.5) Platelet Count 174 x10^3/uL (140-400) 168 x10^3/uL (140-400) Neutrophils (%) (Auto) 85 % (31-73) 91 % (31-73) Lymphocytes (%) (Auto) 7 % (24-48) 4 % (24-48) Monocytes (%) (Auto) 8 % (0-9) 5 % (0-9) Eosinophils (%) (Auto) 0 % (0-3) 0 % (0-3) Basophils (%) (Auto) 0 % (0-3) 0 % (0-3) Neutrophils # (Auto) 20.6 x10^3uL (1.8-7.7) 22.6 x10^3uL (1.8-7.7) Lymphocytes # (Auto) 1.7 x10^3/uL (1.0-4.8) 0.9 x10^3/uL (1.0-4.8) Monocytes # (Auto) 2.0 x10^3/uL (0.0-1.1) 1.3 x10^3/uL (0.0-1.1) Eosinophils # (Auto) 0.0 x10^3/uL (0.0-0.7) 0.0 x10^3/uL (0.0-0.7) Basophils # (Auto) 0.1 x10^3/uL (0.0-0.2) 0.0 x10^3/uL (0.0-0.2) Segmented Neutrophils % 83 % (35-66) Band Neutrophils % 6 % (0-9) Lymphocytes % 5 % (24-48) Monocytes % 6 % (0-10) Platelet Estimate Adequate (ADEQUATE) Prothrombin Time 16.0 SEC (11.7-14.0) Prothromb Time International Ratio 1.3 (0.8-1.1) Activated Partial Thromboplast Time 35 SEC (24-38) Sodium Level 138 mmol/L (136-145) 142 mmol/L (136-145) Potassium Level 3.3 mmol/L (3.5-5.1) 3.7 mmol/L (3.5-5.1) Chloride Level 103 mmol/L (98-107) 104 mmol/L (98-107) Carbon Dioxide Level 22 mmol/L (21-32) 25 mmol/L (21-32) Anion Gap 13 (6-14) 13 (6-14) Blood Urea Nitrogen 8 mg/dL (8-26) 11 mg/dL (8-26) Creatinine 1.1 mg/dL (0.7-1.3) 1.1 mg/dL (0.7-1.3) Estimated GFR (Cockcroft-Gault) 88.0 88.0 BUN/Creatinine Ratio 7 (6-20) Glucose Level 120 mg/dL (70-99) 191 mg/dL (70-99) Calcium Level 9.2 mg/dL (8.5-10.1) 8.9 mg/dL (8.5-10.1) Total Bilirubin 0.8 mg/dL (0.2-1.0) Aspartate Amino Transf (AST/SGOT) 14 U/L (15-37) Alanine Aminotransferase (ALT/SGPT) 21 U/L (16-63) Alkaline Phosphatase 79 U/L (46-116) Total Protein 7.7 g/dL (6.4-8.2) Albumin 3.1 g/dL (3.4-5.0) Albumin/Globulin Ratio 0.7 (1.0-1.7) Procalcitonin 0.61 ng/mL (0.00-0.10) Lactic Acid Level 3.1 mmol/L (0.4-2.0) 1.6 mmol/L (0.4-2.0) 2.8 mmol/L (0.4-2.0) Laboratory Tests Test 04/17/18 10:30 04/17/18 11:17 04/17/18 19:00 04/18/18 03:45 White Blood Count 24.3 x10^3/uL (4.0-11.0) 24.8 x10^3/uL (4.0-11.0) Red Blood Count 4.91 x10^6/uL (4.30-5.70) 4.59 x10^6/uL (4.30-5.70) Hemoglobin 14.4 g/dL (13.0-17.5) 13.3 g/dL (13.0-17.5) Hematocrit 41.7 % (39.0-53.0) 39.4 % (39.0-53.0) Mean Corpuscular Volume 85 fL (79-100) 86 fL (79-100) Mean Corpuscular Hemoglobin 29 pg (25-35) 29 pg (25-35) Mean Corpuscular Hemoglobin Concent 35 g/dL (31-37) 34 g/dL (31-37) Red Cell Distribution Width 12.5 % (11.5-14.5) 12.6 % (11.5-14.5) Platelet Count 174 x10^3/uL (140-400) 168 x10^3/uL (140-400) Neutrophils (%) (Auto) 85 % (31-73) 91 % (31-73) Lymphocytes (%) (Auto) 7 % (24-48) 4 % (24-48) Monocytes (%) (Auto) 8 % (0-9) 5 % (0-9) Eosinophils (%) (Auto) 0 % (0-3) 0 % (0-3) Basophils (%) (Auto) 0 % (0-3) 0 % (0-3) Neutrophils # (Auto) 20.6 x10^3uL (1.8-7.7) 22.6 x10^3uL (1.8-7.7) Lymphocytes # (Auto) 1.7 x10^3/uL (1.0-4.8) 0.9 x10^3/uL (1.0-4.8) Monocytes # (Auto) 2.0 x10^3/uL (0.0-1.1) 1.3 x10^3/uL (0.0-1.1) Eosinophils # (Auto) 0.0 x10^3/uL (0.0-0.7) 0.0 x10^3/uL (0.0-0.7) Basophils # (Auto) 0.1 x10^3/uL (0.0-0.2) 0.0 x10^3/uL (0.0-0.2) Segmented Neutrophils % 83 % (35-66) Band Neutrophils % 6 % (0-9) Lymphocytes % 5 % (24-48) Monocytes % 6 % (0-10) Platelet Estimate Adequate (ADEQUATE) Prothrombin Time 16.0 SEC (11.7-14.0) Prothromb Time International Ratio 1.3 (0.8-1.1) Activated Partial Thromboplast Time 35 SEC (24-38) Sodium Level 138 mmol/L (136-145) 142 mmol/L (136-145) Potassium Level 3.3 mmol/L (3.5-5.1) 3.7 mmol/L (3.5-5.1) Chloride Level 103 mmol/L (98-107) 104 mmol/L (98-107) Carbon Dioxide Level 22 mmol/L (21-32) 25 mmol/L (21-32) Anion Gap 13 (6-14) 13 (6-14) Blood Urea Nitrogen 8 mg/dL (8-26) 11 mg/dL (8-26) Creatinine 1.1 mg/dL (0.7-1.3) 1.1 mg/dL (0.7-1.3) Estimated GFR (Cockcroft-Gault) 88.0 88.0 BUN/Creatinine Ratio 7 (6-20) Glucose Level 120 mg/dL (70-99) 191 mg/dL (70-99) Calcium Level 9.2 mg/dL (8.5-10.1) 8.9 mg/dL (8.5-10.1) Total Bilirubin 0.8 mg/dL (0.2-1.0) Aspartate Amino Transf (AST/SGOT) 14 U/L (15-37) Alanine Aminotransferase (ALT/SGPT) 21 U/L (16-63) Alkaline Phosphatase 79 U/L (46-116) Total Protein 7.7 g/dL (6.4-8.2) Albumin 3.1 g/dL (3.4-5.0) Albumin/Globulin Ratio 0.7 (1.0-1.7) Procalcitonin 0.61 ng/mL (0.00-0.10) Lactic Acid Level 3.1 mmol/L (0.4-2.0) 1.6 mmol/L (0.4-2.0) 2.8 mmol/L (0.4-2.0) Problem List Problems Medical Problems: (1) Tachycardia Status: Acute Assessment/Plan Status post I&D of right peritoneum abscess Continue IV antibiotics per ID follow-up on cultures Consult wound care nurse VICK VALLE MD Apr 18, 2018 08:36
[2018-04-18] MEDS: MORPHINE SULFATE 2 MG/ML VIAL. IV PRN ×3 (10:40→17:49)
--- NOTE | 2018-04-18 11:24 | PDOC ---
Infectious Disease Note Subjective Subjective s/p I and D c/o pain Denies N/V/D/constipation Subjective fever ROS ROS per HPI otherwise neg Vital Sign Vital Signs Vital Signs Date Time Temp Pulse Resp B/P (MAP) Pulse Ox O2 Delivery O2 Flow Rate FiO2 04/18/18 10:40 16 Room Air 04/18/18 07:00 98.1 90 126/80 (95) 97 98.1 04/17/18 16:17 10 Physical Exam PHYSICAL EXAM GENERAL: Propped up in bed, alert, NAD HEENT: Pupils equal and reactive. Normal conjunctivae. Oral cavity, pharynx is clear. NECK: Supple. Good range of motion. LUNGS: Clear to auscultation bilaterally. HEART: S1, S2. ABDOMEN: Mildly protuberant, soft, no guarding, no tenderness. EXTREMITIES: No clubbing, cyanosis or gross edema. SKIN: Multiple tattoos. No generalized rash. Post-op dressing Labs Lab Laboratory Tests Test 04/17/18 19:00 04/18/18 03:45 04/18/18 08:50 Lactic Acid Level 1.6 mmol/L (0.4-2.0) 2.8 mmol/L (0.4-2.0) 3.0 mmol/L (0.4-2.0) White Blood Count 24.8 x10^3/uL (4.0-11.0) Red Blood Count 4.59 x10^6/uL (4.30-5.70) Hemoglobin 13.3 g/dL (13.0-17.5) Hematocrit 39.4 % (39.0-53.0) Mean Corpuscular Volume 86 fL (79-100) Mean Corpuscular Hemoglobin 29 pg (25-35) Mean Corpuscular Hemoglobin Concent 34 g/dL (31-37) Red Cell Distribution Width 12.6 % (11.5-14.5) Platelet Count 168 x10^3/uL (140-400) Neutrophils (%) (Auto) 91 % (31-73) Lymphocytes (%) (Auto) 4 % (24-48) Monocytes (%) (Auto) 5 % (0-9) Eosinophils (%) (Auto) 0 % (0-3) Basophils (%) (Auto) 0 % (0-3) Neutrophils # (Auto) 22.6 x10^3uL (1.8-7.7) Lymphocytes # (Auto) 0.9 x10^3/uL (1.0-4.8) Monocytes # (Auto) 1.3 x10^3/uL (0.0-1.1) Eosinophils # (Auto) 0.0 x10^3/uL (0.0-0.7) Basophils # (Auto) 0.0 x10^3/uL (0.0-0.2) Sodium Level 142 mmol/L (136-145) Potassium Level 3.7 mmol/L (3.5-5.1) Chloride Level 104 mmol/L (98-107) Carbon Dioxide Level 25 mmol/L (21-32) Anion Gap 13 (6-14) Blood Urea Nitrogen 11 mg/dL (8-26) Creatinine 1.1 mg/dL (0.7-1.3) Estimated GFR (Cockcroft-Gault) 88.0 Glucose Level 191 mg/dL (70-99) Calcium Level 8.9 mg/dL (8.5-10.1) Micro BLOOD CULTURE Preliminary NO GROWTH AFTER 1 DAY Objective Assessment Sepsis. Leukocytosis - stable Right buttock abscess. s/p I and D on 04/17. Intra-op cultures pending Lactic acidosis. Plan Plan of Care Cont Vanc, Zosyn and clinda Awaiting culture results Monitor labs/temp/renal function Pain management per primary D/w RN Attending Co-Sign The patient was seen and interviewed as well as examined at the bedside. The chart was reviewed. The case was discussed. Agree with the plan of care. MOLLY QUIÑONES APRN Apr 18, 2018 11:24 SHANI ORTIZ MD Apr 18, 2018 12:04
--- NOTE | 2018-04-18 15:14 | PDOC ---
PROGRESS NOTES Chief Complaint Chief Complaint Sepsis Right gluteal abscess History of Present Illness History of Present Illness Patient is a 43 year old male w/ no significant PMHx admitted c/o an abscess on the right buttock area. S/p ID on 04/17/18. He said he has had right buttock pain, swelling, some white discharge for 5ds, with T 102, Chills daily. He denies injury or bug biten. WBC 24, LA 3. HR 110S on admission, was septic due to this. CT abdomen - 1. There is nonspecific inflammatory change centered in the fat of the medial right thigh proximally without discrete drainable fluid collection /abscess, inferior extent not fully included. 2. There are nonspecific inguinal nodes bilaterally, largest on the right, nonspecific and possibly reactive although clinical follow-up recommended. 3. There is a small fat-containing umbilical hernia. Tolerated I&D well, was feeling rigors and chills after. Having significant pain , but otherwise feeling ok. No BM. WBC still up. Denies SOB, but does have slight cough A/P: Right gluteal cellulitis/abscess - ID following, clindamycin, zosyn, vancomycin h/o drug use with cocaine, marijuana - sober currently 2/2 incarceration, counseled Sepsis - secondary to abscess, lactate still up, will cont IVF for now hypokalemia - monitor and replace mild malnutrition - likely 2/2 abscess, will control nausea so he will eat General diet dvt ppx - heparin Full Code Inpatient for sepsis secondary to abscess Vitals Vitals Vital Signs Date Time Temp Pulse Resp B/P (MAP) Pulse Ox O2 Delivery O2 Flow Rate FiO2 04/18/18 14:58 16 Room Air 04/18/18 11:00 98.2 92 136/84 (101) 98 98.2 04/17/18 16:17 10 Physical Exam Physical Exam GENERAL: Propped up in bed, alert, NAD HEENT: Pupils equal and reactive. Normal conjunctivae. Oral cavity, pharynx is clear. NECK: Supple. Good range of motion. LUNGS: Clear to auscultation bilaterally. HEART: S1, S2. ABDOMEN: Mildly protuberant, soft, no guarding, no tenderness. EXTREMITIES: No clubbing, cyanosis or gross edema. SKIN: Multiple tattoos. No generalized rash. Post-op dressing General: Alert, Oriented X3, Cooperative, mild distress Heart: Regular rate, No murmurs Abdomen: Normal bowel sounds, Soft, No tenderness Extremities: No clubbing, No edema Skin: Other (wound dressed with packing) Labs LABS Laboratory Tests Test 04/17/18 19:00 04/18/18 03:45 04/18/18 08:50 Lactic Acid Level 1.6 mmol/L (0.4-2.0) 2.8 mmol/L (0.4-2.0) 3.0 mmol/L (0.4-2.0) White Blood Count 24.8 x10^3/uL (4.0-11.0) Red Blood Count 4.59 x10^6/uL (4.30-5.70) Hemoglobin 13.3 g/dL (13.0-17.5) Hematocrit 39.4 % (39.0-53.0) Mean Corpuscular Volume 86 fL (79-100) Mean Corpuscular Hemoglobin 29 pg (25-35) Mean Corpuscular Hemoglobin Concent 34 g/dL (31-37) Red Cell Distribution Width 12.6 % (11.5-14.5) Platelet Count 168 x10^3/uL (140-400) Neutrophils (%) (Auto) 91 % (31-73) Lymphocytes (%) (Auto) 4 % (24-48) Monocytes (%) (Auto) 5 % (0-9) Eosinophils (%) (Auto) 0 % (0-3) Basophils (%) (Auto) 0 % (0-3) Neutrophils # (Auto) 22.6 x10^3uL (1.8-7.7) Lymphocytes # (Auto) 0.9 x10^3/uL (1.0-4.8) Monocytes # (Auto) 1.3 x10^3/uL (0.0-1.1) Eosinophils # (Auto) 0.0 x10^3/uL (0.0-0.7) Basophils # (Auto) 0.0 x10^3/uL (0.0-0.2) Sodium Level 142 mmol/L (136-145) Potassium Level 3.7 mmol/L (3.5-5.1) Chloride Level 104 mmol/L (98-107) Carbon Dioxide Level 25 mmol/L (21-32) Anion Gap 13 (6-14) Blood Urea Nitrogen 11 mg/dL (8-26) Creatinine 1.1 mg/dL (0.7-1.3) Estimated GFR (Cockcroft-Gault) 88.0 Glucose Level 191 mg/dL (70-99) Calcium Level 8.9 mg/dL (8.5-10.1) Assessment and Plan Assessmemt and Plan Problems Medical Problems: (1) Tachycardia Status: Acute Comment Review of Relevant I have reviewed the following items [place] (where applicable) has been applied. Labs Laboratory Tests Test 04/17/18 10:30 04/17/18 11:17 04/17/18 19:00 04/18/18 03:45 White Blood Count 24.3 x10^3/uL (4.0-11.0) 24.8 x10^3/uL (4.0-11.0) Red Blood Count 4.91 x10^6/uL (4.30-5.70) 4.59 x10^6/uL (4.30-5.70) Hemoglobin 14.4 g/dL (13.0-17.5) 13.3 g/dL (13.0-17.5) Hematocrit 41.7 % (39.0-53.0) 39.4 % (39.0-53.0) Mean Corpuscular Volume 85 fL (79-100) 86 fL (79-100) Mean Corpuscular Hemoglobin 29 pg (25-35) 29 pg (25-35) Mean Corpuscular Hemoglobin Concent 35 g/dL (31-37) 34 g/dL (31-37) Red Cell Distribution Width 12.5 % (11.5-14.5) 12.6 % (11.5-14.5) Platelet Count 174 x10^3/uL (140-400) 168 x10^3/uL (140-400) Neutrophils (%) (Auto) 85 % (31-73) 91 % (31-73) Lymphocytes (%) (Auto) 7 % (24-48) 4 % (24-48) Monocytes (%) (Auto) 8 % (0-9) 5 % (0-9) Eosinophils (%) (Auto) 0 % (0-3) 0 % (0-3) Basophils (%) (Auto) 0 % (0-3) 0 % (0-3) Neutrophils # (Auto) 20.6 x10^3uL (1.8-7.7) 22.6 x10^3uL (1.8-7.7) Lymphocytes # (Auto) 1.7 x10^3/uL (1.0-4.8) 0.9 x10^3/uL (1.0-4.8) Monocytes # (Auto) 2.0 x10^3/uL (0.0-1.1) 1.3 x10^3/uL (0.0-1.1) Eosinophils # (Auto) 0.0 x10^3/uL (0.0-0.7) 0.0 x10^3/uL (0.0-0.7) Basophils # (Auto) 0.1 x10^3/uL (0.0-0.2) 0.0 x10^3/uL (0.0-0.2) Segmented Neutrophils % 83 % (35-66) Band Neutrophils % 6 % (0-9) Lymphocytes % 5 % (24-48) Monocytes % 6 % (0-10) Platelet Estimate Adequate (ADEQUATE) Prothrombin Time 16.0 SEC (11.7-14.0) Prothromb Time International Ratio 1.3 (0.8-1.1) Activated Partial Thromboplast Time 35 SEC (24-38) Sodium Level 138 mmol/L (136-145) 142 mmol/L (136-145) Potassium Level 3.3 mmol/L (3.5-5.1) 3.7 mmol/L (3.5-5.1) Chloride Level 103 mmol/L (98-107) 104 mmol/L (98-107) Carbon Dioxide Level 22 mmol/L (21-32) 25 mmol/L (21-32) Anion Gap 13 (6-14) 13 (6-14) Blood Urea Nitrogen 8 mg/dL (8-26) 11 mg/dL (8-26) Creatinine 1.1 mg/dL (0.7-1.3) 1.1 mg/dL (0.7-1.3) Estimated GFR (Cockcroft-Gault) 88.0 88.0 BUN/Creatinine Ratio 7 (6-20) Glucose Level 120 mg/dL (70-99) 191 mg/dL (70-99) Calcium Level 9.2 mg/dL (8.5-10.1) 8.9 mg/dL (8.5-10.1) Total Bilirubin 0.8 mg/dL (0.2-1.0) Aspartate Amino Transf (AST/SGOT) 14 U/L (15-37) Alanine Aminotransferase (ALT/SGPT) 21 U/L (16-63) Alkaline Phosphatase 79 U/L (46-116) Total Protein 7.7 g/dL (6.4-8.2) Albumin 3.1 g/dL (3.4-5.0) Albumin/Globulin Ratio 0.7 (1.0-1.7) Procalcitonin 0.61 ng/mL (0.00-0.10) Lactic Acid Level 3.1 mmol/L (0.4-2.0) 1.6 mmol/L (0.4-2.0) 2.8 mmol/L (0.4-2.0) Test 04/18/18 08:50 Lactic Acid Level 3.0 mmol/L (0.4-2.0) Laboratory Tests Test 04/17/18 19:00 04/18/18 03:45 04/18/18 08:50 Lactic Acid Level 1.6 mmol/L (0.4-2.0) 2.8 mmol/L (0.4-2.0) 3.0 mmol/L (0.4-2.0) White Blood Count 24.8 x10^3/uL (4.0-11.0) Red Blood Count 4.59 x10^6/uL (4.30-5.70) Hemoglobin 13.3 g/dL (13.0-17.5) Hematocrit 39.4 % (39.0-53.0) Mean Corpuscular Volume 86 fL (79-100) Mean Corpuscular Hemoglobin 29 pg (25-35) Mean Corpuscular Hemoglobin Concent 34 g/dL (31-37) Red Cell Distribution Width 12.6 % (11.5-14.5) Platelet Count 168 x10^3/uL (140-400) Neutrophils (%) (Auto) 91 % (31-73) Lymphocytes (%) (Auto) 4 % (24-48) Monocytes (%) (Auto) 5 % (0-9) Eosinophils (%) (Auto) 0 % (0-3) Basophils (%) (Auto) 0 % (0-3) Neutrophils # (Auto) 22.6 x10^3uL (1.8-7.7) Lymphocytes # (Auto) 0.9 x10^3/uL (1.0-4.8) Monocytes # (Auto) 1.3 x10^3/uL (0.0-1.1) Eosinophils # (Auto) 0.0 x10^3/uL (0.0-0.7) Basophils # (Auto) 0.0 x10^3/uL (0.0-0.2) Sodium Level 142 mmol/L (136-145) Potassium Level 3.7 mmol/L (3.5-5.1) Chloride Level 104 mmol/L (98-107) Carbon Dioxide Level 25 mmol/L (21-32) Anion Gap 13 (6-14) Blood Urea Nitrogen 11 mg/dL (8-26) Creatinine 1.1 mg/dL (0.7-1.3) Estimated GFR (Cockcroft-Gault) 88.0 Glucose Level 191 mg/dL (70-99) Calcium Level 8.9 mg/dL (8.5-10.1) Microbiology 04/17/18 Blood Culture - Preliminary, Resulted NO GROWTH AFTER 1 DAY Medications Current Medications Sodium Chloride 2,040 ml @ 2,040 mls/hr Q1H IV Last administered on at 10:42; Start 04/17/18 at 10:30; Stop 04/17/18 at 19:33; Status DC Sodium Chloride 500 ml @ 1,000 mls/hr PRN Q30MIN PRN IV SEE COMMENTS; Start 04/17/18 at 10:15; Stop 04/17/18 at 19:33; Status DC Vancomycin HCl (Vanco Per Pharmacy) 1 each PRN DAILY PRN MC SEE COMMENTS Last administered on 04/17/18at 14:17; Start 04/17/18 at 10:15 Piperacillin Sod/ Tazobactam Sod 3.375 gm/Sodium Chloride 50 ml @ 100 mls/hr Q6HRS IV Last administered on 04/18/18at 12:24; Start 04/17/18 at 18:00 Acetaminophen/ Hydrocodone Bitart (Lortab 5/325) 2 tab 1X ONCE PO Last administered on 04/17/18at 10:36; Start 04/17/18 at 10:30; Stop 04/17/18 at 10 :31; Status DC Vancomycin HCl 2 gm/Sodium Chloride 500 ml @ 250 mls/hr 1X ONCE IV Last administered on 04/17/18at 12:09; Start 04/17/18 at 10:45; Stop 04/17/18 at 12 :44; Status DC Piperacillin Sod/ Tazobactam Sod 4.5 gm/Sodium Chloride 100 ml @ 200 mls/hr 1X ONCE IV Last administered on 04/17/18at 11:27; Start 04/17/18 at 10:45; Stop 04/17/18 at 11:14; Status DC Iohexol (Omnipaque 300 Mg/ml) 75 ml 1X ONCE IV Last administered on at 10:45; Start 04/17/18 at 10:45; Stop 04/17/18 at 10:46; Status DC Info (CONTRAST GIVEN -- Rx MONITORING) 1 each PRN DAILY PRN MC SEE COMMENTS; Start 04/17/18 at 11:00; Stop 04/19/18 at 10:59 Ondansetron HCl (Zofran) 4 mg PRN Q8HRS PRN IV NAUSEA/VOMITING; Start at 12:30; Stop 04/18/18 at 12:29; Status DC Morphine Sulfate (Morphine Sulfate) 4 mg PRN Q2HR PRN IV PAIN Last administered on 04/17/18at 20:50; Start 04/17/18 at 12:30; Stop 04/18/18 at 12 :29; Status DC Acetaminophen (Tylenol) 650 mg PRN Q4HRS PRN PO FEVER; Start 04/17/18 at 12:30 ; Stop 04/18/18 at 12:29; Status DC Sodium Chloride 1,000 ml @ 125 mls/hr 1X ONCE IV ; Start 04/17/18 at 12:30; Stop 04/17/18 at 20:29; Status DC Propofol 20 ml @ As Directed STK-MED ONCE IV ; Start 04/17/18 at 12:43; Stop 04/17/18 at 12:44; Status DC Lidocaine HCl (Lidocaine Pf 2% Vial) 5 ml STK-MED ONCE .ROUTE ; Start 04/17/18 at 12:43; Stop 04/17/18 at 12:44; Status DC Fentanyl Citrate (Fentanyl 2ml Vial) 100 mcg STK-MED ONCE .ROUTE ; Start at 12:44; Stop 04/17/18 at 12:45; Status DC Rocuronium [place] (Zemuron) 50 mg STK-MED ONCE .ROUTE ; Start 04/17/18 at 12: 44; Stop 04/17/18 at 12:45; Status DC Fentanyl Citrate (Fentanyl 2ml Vial) 25 mcg PRN Q5MIN PRN IV MILD PAIN; Start 04/17/18 at 13:30; Stop 04/18/18 at 13:29; Status DC Fentanyl Citrate (Fentanyl 2ml Vial) 50 mcg PRN Q5MIN PRN IV MODERATE TO SEVERE PAIN; Start 04/17/18 at 13:30; Stop 04/18/18 at 13:29; Status DC Morphine Sulfate (Morphine Sulfate) 1 mg PRN Q10MIN PRN IV SEVERE PAIN; Start 04/17/18 at 13:30; Stop 04/18/18 at 13:29; Status DC Ringer's Solution 1,000 ml @ 30 mls/hr Q24H IV ; Start 04/17/18 at 13:29; Stop 04/18/18 at 01:28; Status DC Lidocaine HCl (Xylocaine-Mpf 1% 2ml Vial) 2 ml 1X PRN PRN ID IV START; Start 04/17/18 at 13:30; Stop 04/18/18 at 13:29; Status DC Hydromorphone HCl (Dilaudid) 0.5 mg PRN Q10MIN PRN IV SEV PAIN, Second choice; Start 04/17/18 at 13:30; Stop 04/18/18 at 13:29; Status DC Prochlorperazine Edisylate (Compazine) 5 mg PACU PRN PRN IV NAUSEA, MRX1; Start 04/17/18 at 13:30; Stop 04/18/18 at 13:29; Status DC Clindamycin Phosphate 50 ml @ 100 mls/hr Q8HRS IV Last administered on at 06:28; Start 04/17/18 at 14:00 Vancomycin HCl 1.25 gm/Sodium Chloride 250 ml @ 167 mls/hr Q12H IV Last administered on 04/18/18at 13:32; Start 04/18/18 at 00:00 Vancomycin HCl (Vancomycin Trough Level) 1 each 1X ONCE MC Last administered on 04/17/18at 14:00; Start 04/17/18 at 14:00; Stop 04/17/18 at 14:01; Status DC Vancomycin HCl (Vancomycin Trough Level) 1 each 1X ONCE MC ; Start 04/18/18 at 23:30; Stop 04/18/18 at 23:31 Potassium Chloride (Klor-Con) 40 meq 1X ONCE PO ; Start 04/17/18 at 15:00; Stop 04/17/18 at 15:01; Status DC Acetaminophen (Tylenol) 650 mg PRN Q6HRS PRN PO FEVER; Start 04/17/18 at 14:45 Ondansetron HCl (Zofran) 4 mg PRN Q6HRS PRN IV NAUSEA/VOMITING; Start at 14:45 Morphine Sulfate (Morphine Sulfate) 2 mg PRN Q2HR PRN IV MODERATE TO SEVERE PAIN Last administered on 04/18/18at 14:44; Start 04/17/18 at 14:45 Tramadol HCl (Ultram) 50 mg PRN Q6HRS PRN PO MILD TO MODERATE PAIN; Start at 14:45 Docusate Sodium (Colace) 100 mg PRN DAILY PRN PO CONSTIPATION; Start 04/17/18 at 14:45 Sodium Chloride 1,000 ml @ 100 mls/hr Q10H IV Last administered on 04/18/18at 00:43; Start 04/17/18 at 14:45 Oxycodone/ Acetaminophen (Percocet 5/325) 1 tab PRN Q4HRS PRN PO SEVERE PAIN Last administered on 04/18/18at 14:58; Start 04/17/18 at 15:00 Bupivacaine HCl/ Epinephrine Bitart (Sensorcain-Mpf Epi 0.5%-[id number]) 30 ml STK -MED ONCE .ROUTE ; Start 04/17/18 at 13:53; Stop 04/17/18 at 14:54; Status DC Dexamethasone Sodium Phosphate (Decadron) 20 mg STK-MED ONCE .ROUTE ; Start at 15:49; Stop 04/17/18 at 15:50; Status DC Sevoflurane (Ultane) 15 ml STK-MED ONCE IH ; Start 04/17/18 at 15:49; Stop at 15:50; Status DC Ondansetron HCl (Zofran) 4 mg STK-MED ONCE .ROUTE ; Start 04/17/18 at 15:50; Stop 04/17/18 at 15:51; Status DC Sodium Chloride 1,000 ml @ 1,980 mls/hr Q31M IV Last administered on at 12:24; Start 04/18/18 at 12:15; Stop 04/18/18 at 13:15; Status DC Active Scripts Active Azithromycin Tablet (Azithromycin) 250 Mg Tablet 1 Pkg PO UD Proair Hfa Inhaler (Albuterol Sulfate) 8.5 Gm Hfa.aer.ad 2 Puff INH PRN Q6HRS PRN Prednisone 20 Mg Tablet 2 Tab PO DAILY Vitals/I & O Vital Sign - Last 24 Hours 04/17/18 04/17/18 04/17/18 04/17/18 15:30 16:17 16:32 16:47 Temp 98.6 97.8 98.6 97.8 Pulse 98 105 108 108 Resp 16 20 20 20 B/P (MAP) 116/81 133/77 124/78 125/78 Pulse Ox 100 99 96 94 O2 Delivery Room Air Simple Mask Room Air Room Air O2 Flow Rate 10 04/17/18 04/17/18 04/17/18 04/17/18 16:52 19:00 20:00 20:50 Temp 97.7 97.7 Pulse 96 Resp 20 18 18 B/P (MAP) 126/77 (93) Pulse Ox 95 O2 Delivery Room Air Room Air Room Air 04/17/18 04/17/18 04/17/18 04/17/18 21:30 23:00 23:49 23:49 Temp 98.1 98.1 Pulse 91 Resp 18 16 18 18 B/P (MAP) 123/86 (98) O2 Delivery Room Air Room Air Room Air Room Air 04/18/18 04/18/18 04/18/18 04/18/18 03:00 05:47 05:55 07:00 Temp 97.7 98.1 97.7 98.1 Pulse 74 90 Resp 16 18 18 B/P (MAP) 97/54 (68) 150/81 (104) 126/80 (95) Pulse Ox 95 97 O2 Delivery Room Air Room Air Room Air 04/18/18 04/18/18 04/18/18 04/18/18 10:32 10:40 11:00 11:15 Temp 98.2 98.2 Pulse 92 Resp 16 16 18 16 B/P (MAP) 136/84 (101) Pulse Ox 98 O2 Delivery Room Air Room Air Room Air Room Air 04/18/18 04/18/18 04/18/18 11:30 14:44 14:58 Resp 16 16 16 O2 Delivery Room Air Room Air Room Air Intake and Output 04/17/18 04/17/18 04/18/18 15:00 23:00 07:00 Intake Total 1290 ml 370 ml Output Total 700 ml Balance 1290 ml -330 ml AGUSTÍN RICKS MD Apr 18, 2018 15:14
[2018-04-18] MEDS ORDERED: ONDANSETRON PF 4 MG/2 ML VIAL. IV PRN (15:15)
[2018-04-18] MEDS: VANCOMYCIN PER PHARMACY MC PRN (16:11)
[2018-04-18] MEDS: VITS A & D/LANOLIN TOPICAL OINTMENT 56GM TUBE. TP PRN (16:42)
[2018-04-18] MEDS: HEPARIN for SUB-Q USE 5,000 UNIT/ML VIAL. SQ SCH ×2 (16:48→21:57)
[2018-04-18] MEDS: LACTOBACILLUS RHAMNOSUS GG 1 CAPSULE. PO SCH (20:23)
[2018-04-19] MEDS: VANCOMYCIN 1.25 GM in IV NORMAL SALINE 250ML 250 ML IV SCH ×2 (01:31→15:26)
[2018-04-19 02:21] LABS: VANC TR 17.4 mcg/mL (10.0-20.0)
[2018-04-19 02:55] LABS: BASO # 0.1 x10^3/uL (0.0-0.2); BASO % 0 % (0-3); EOS % 0 % (0-3); HEMATOCRIT 37.9 % (39.0-53.0); HEMOGLOBIN 12.7 g/dL (13.0-17.5); LYMPH # 1.5 x10^3/uL (1.0-4.8); LYMPH % 6 % (24-48); MEAN CORPUSCULAR HEMOGLOBIN 29 pg (25-35); MEAN CORPUSCULAR HGB CONC 34 g/dL (31-37); MEAN CORPUSCULAR VOLUME 86 fL (79-100); MONO # 1.6 x10^3/uL (0.0-1.1); MONO % 7 % (0-9); NEUT # 20.3 x10^3uL (1.8-7.7); NEUT % 87 % (31-73); PLATELET COUNT 182 x10^3/uL (140-400); RED BLOOD COUNT 4.42 x10^6/uL (4.30-5.70); RED CELL DISTRIBUTION WIDTH 13.1 % (11.5-14.5); WHITE BLOOD COUNT 23.5 x10^3/uL (4.0-11.0)
[2018-04-19] MEDS: VANCOMYCIN PER PHARMACY MC PRN (02:55)
[2018-04-19 03:42] VITALS: BP 121/70
[2018-04-19] MEDS: PIPERACILLIN/TAZOBACTAM 3.375 GM in IV NORMAL SALINE 50ML 50 ML IV SCH ×3 (05:37→19:25)
[2018-04-19] MEDS: oxyCODONE/APAP 5/325 1 TAB TABLET PO PRN ×2 (05:39→20:52)
[2018-04-19 06:02] LABS: GFR 98.2
[2018-04-19] MEDS: CLINDAMYCIN 600MG PREMIX 50 ML IV SCH ×3 (06:20→22:00)
[2018-04-19] MEDS: MORPHINE SULFATE 2 MG/ML VIAL. IV PRN ×3 (06:21→19:34)
[2018-04-19] MEDS: HEPARIN for SUB-Q USE 5,000 UNIT/ML VIAL. SQ SCH ×3 (06:29→22:25)
[2018-04-19 07:00] VITALS: BP 119/71
--- NOTE | 2018-04-19 07:37 | PDOC ---
PROGRESS NOTES Chief Complaint Chief Complaint Sepsis Right gluteal abscess History of Present Illness History of Present Illness Patient is a 43 year old male w/ no significant PMHx admitted c/o an abscess on the right buttock area. S/p ID on 04/17/18. He said he has had right buttock pain, swelling, some white discharge for 5ds, with T 102, Chills daily. He denies injury or bug biten. WBC 24, LA 3. HR 110S on admission, was septic due to this. CT abdomen - 1. There is nonspecific inflammatory change centered in the fat of the medial right thigh proximally without discrete drainable fluid collection /abscess, inferior extent not fully included. 2. There are nonspecific inguinal nodes bilaterally, largest on the right, nonspecific and possibly reactive although clinical follow-up recommended. 3. There is a small fat-containing umbilical hernia. Tolerated I&D well, was feeling rigors and chills after, still a little today. Having improved pain, but otherwise feeling ok. No BM. WBC still up. Denies SOB , but does have slight cough that is improving. In better spirits today. Denies CP. has an appetite improving. A/P: Right gluteal cellulitis/abscess - ID following, clindamycin, zosyn, vancomycin h/o drug use with cocaine, marijuana - sober currently 2/2 incarceration, counseled Sepsis - secondary to abscess, lactate still up, will cont IVF for now hypokalemia - monitor and replace mild malnutrition - likely 2/2 abscess, will control nausea so he will eat General diet dvt ppx - heparin Full Code Inpatient for sepsis secondary to abscess Vitals Vitals Vital Signs Date Time Temp Pulse Resp B/P (MAP) Pulse Ox O2 Delivery O2 Flow Rate FiO2 04/19/18 06:21 18 Room Air 04/19/18 03:42 97.9 77 121/70 (87) 96 97.9 Physical Exam Physical Exam GENERAL: Propped up in bed, alert, NAD HEENT: Pupils equal and reactive. Normal conjunctivae. Oral cavity, pharynx is clear. NECK: Supple. Good range of motion. LUNGS: Clear to auscultation bilaterally. HEART: S1, S2. ABDOMEN: Mildly protuberant, soft, no guarding, no tenderness. EXTREMITIES: No clubbing, cyanosis or gross edema. SKIN: Multiple tattoos. No generalized rash. Post-op dressing General: Alert, Oriented X3, Cooperative, mild distress Heart: Regular rate, No murmurs Abdomen: Normal bowel sounds, Soft, No tenderness Extremities: No clubbing, No edema Skin: Other (wound dressed with packing) Labs LABS Laboratory Tests Test 04/18/18 08:50 04/18/18 21:45 04/19/18 02:00 Lactic Acid Level 3.0 mmol/L (0.4-2.0) 2.5 mmol/L (0.4-2.0) White Blood Count 23.5 x10^3/uL (4.0-11.0) Red Blood Count 4.42 x10^6/uL (4.30-5.70) Hemoglobin 12.7 g/dL (13.0-17.5) Hematocrit 37.9 % (39.0-53.0) Mean Corpuscular Volume 86 fL (79-100) Mean Corpuscular Hemoglobin 29 pg (25-35) Mean Corpuscular Hemoglobin Concent 34 g/dL (31-37) Red Cell Distribution Width 13.1 % (11.5-14.5) Platelet Count 182 x10^3/uL (140-400) Neutrophils (%) (Auto) 87 % (31-73) Lymphocytes (%) (Auto) 6 % (24-48) Monocytes (%) (Auto) 7 % (0-9) Eosinophils (%) (Auto) 0 % (0-3) Basophils (%) (Auto) 0 % (0-3) Neutrophils # (Auto) 20.3 x10^3uL (1.8-7.7) Lymphocytes # (Auto) 1.5 x10^3/uL (1.0-4.8) Monocytes # (Auto) 1.6 x10^3/uL (0.0-1.1) Eosinophils # (Auto) 0.0 x10^3/uL (0.0-0.7) Basophils # (Auto) 0.1 x10^3/uL (0.0-0.2) Creatinine 1.0 mg/dL (0.7-1.3) Estimated GFR (Cockcroft-Gault) 98.2 Vancomycin Level Trough 17.4 mcg/mL (10.0-20.0) Vancomycin Last Dose Date Vancomycin Last Dose Time 1200 Assessment and Plan Assessmemt and Plan Problems Medical Problems: (1) Tachycardia Status: Acute Comment Review of Relevant I have reviewed the following items parish (where applicable) has been applied. Labs Laboratory Tests Test 04/17/18 10:30 04/17/18 11:17 04/17/18 19:00 04/18/18 03:45 White Blood Count 24.3 x10^3/uL (4.0-11.0) 24.8 x10^3/uL (4.0-11.0) Red Blood Count 4.91 x10^6/uL (4.30-5.70) 4.59 x10^6/uL (4.30-5.70) Hemoglobin 14.4 g/dL (13.0-17.5) 13.3 g/dL (13.0-17.5) Hematocrit 41.7 % (39.0-53.0) 39.4 % (39.0-53.0) Mean Corpuscular Volume 85 fL (79-100) 86 fL (79-100) Mean Corpuscular Hemoglobin 29 pg (25-35) 29 pg (25-35) Mean Corpuscular Hemoglobin Concent 35 g/dL (31-37) 34 g/dL (31-37) Red Cell Distribution Width 12.5 % (11.5-14.5) 12.6 % (11.5-14.5) Platelet Count 174 x10^3/uL (140-400) 168 x10^3/uL (140-400) Neutrophils (%) (Auto) 85 % (31-73) 91 % (31-73) Lymphocytes (%) (Auto) 7 % (24-48) 4 % (24-48) Monocytes (%) (Auto) 8 % (0-9) 5 % (0-9) Eosinophils (%) (Auto) 0 % (0-3) 0 % (0-3) Basophils (%) (Auto) 0 % (0-3) 0 % (0-3) Neutrophils # (Auto) 20.6 x10^3uL (1.8-7.7) 22.6 x10^3uL (1.8-7.7) Lymphocytes # (Auto) 1.7 x10^3/uL (1.0-4.8) 0.9 x10^3/uL (1.0-4.8) Monocytes # (Auto) 2.0 x10^3/uL (0.0-1.1) 1.3 x10^3/uL (0.0-1.1) Eosinophils # (Auto) 0.0 x10^3/uL (0.0-0.7) 0.0 x10^3/uL (0.0-0.7) Basophils # (Auto) 0.1 x10^3/uL (0.0-0.2) 0.0 x10^3/uL (0.0-0.2) Segmented Neutrophils % 83 % (35-66) Band Neutrophils % 6 % (0-9) Lymphocytes % 5 % (24-48) Monocytes % 6 % (0-10) Platelet Estimate Adequate (ADEQUATE) Prothrombin Time 16.0 SEC (11.7-14.0) Prothromb Time International Ratio 1.3 (0.8-1.1) Activated Partial Thromboplast Time 35 SEC (24-38) Sodium Level 138 mmol/L (136-145) 142 mmol/L (136-145) Potassium Level 3.3 mmol/L (3.5-5.1) 3.7 mmol/L (3.5-5.1) Chloride Level 103 mmol/L (98-107) 104 mmol/L (98-107) Carbon Dioxide Level 22 mmol/L (21-32) 25 mmol/L (21-32) Anion Gap 13 (6-14) 13 (6-14) Blood Urea Nitrogen 8 mg/dL (8-26) 11 mg/dL (8-26) Creatinine 1.1 mg/dL (0.7-1.3) 1.1 mg/dL (0.7-1.3) Estimated GFR (Cockcroft-Gault) 88.0 88.0 BUN/Creatinine Ratio 7 (6-20) Glucose Level 120 mg/dL (70-99) 191 mg/dL (70-99) Calcium Level 9.2 mg/dL (8.5-10.1) 8.9 mg/dL (8.5-10.1) Total Bilirubin 0.8 mg/dL (0.2-1.0) Aspartate Amino Transf (AST/SGOT) 14 U/L (15-37) Alanine Aminotransferase (ALT/SGPT) 21 U/L (16-63) Alkaline Phosphatase 79 U/L (46-116) Total Protein 7.7 g/dL (6.4-8.2) Albumin 3.1 g/dL (3.4-5.0) Albumin/Globulin Ratio 0.7 (1.0-1.7) Procalcitonin 0.61 ng/mL (0.00-0.10) Lactic Acid Level 3.1 mmol/L (0.4-2.0) 1.6 mmol/L (0.4-2.0) 2.8 mmol/L (0.4-2.0) Test 04/18/18 08:50 04/18/18 21:45 04/19/18 02:00 Lactic Acid Level 3.0 mmol/L (0.4-2.0) 2.5 mmol/L (0.4-2.0) White Blood Count 23.5 x10^3/uL (4.0-11.0) Red Blood Count 4.42 x10^6/uL (4.30-5.70) Hemoglobin 12.7 g/dL (13.0-17.5) Hematocrit 37.9 % (39.0-53.0) Mean Corpuscular Volume 86 fL (79-100) Mean Corpuscular Hemoglobin 29 pg (25-35) Mean Corpuscular Hemoglobin Concent 34 g/dL (31-37) Red Cell Distribution Width 13.1 % (11.5-14.5) Platelet Count 182 x10^3/uL (140-400) Neutrophils (%) (Auto) 87 % (31-73) Lymphocytes (%) (Auto) 6 % (24-48) Monocytes (%) (Auto) 7 % (0-9) Eosinophils (%) (Auto) 0 % (0-3) Basophils (%) (Auto) 0 % (0-3) Neutrophils # (Auto) 20.3 x10^3uL (1.8-7.7) Lymphocytes # (Auto) 1.5 x10^3/uL (1.0-4.8) Monocytes # (Auto) 1.6 x10^3/uL (0.0-1.1) Eosinophils # (Auto) 0.0 x10^3/uL (0.0-0.7) Basophils # (Auto) 0.1 x10^3/uL (0.0-0.2) Creatinine 1.0 mg/dL (0.7-1.3) Estimated GFR (Cockcroft-Gault) 98.2 Vancomycin Level Trough 17.4 mcg/mL (10.0-20.0) Vancomycin Last Dose Date [id number] Vancomycin Last Dose Time 1200 Laboratory Tests Test 04/18/18 08:50 04/18/18 21:45 04/19/18 02:00 Lactic Acid Level 3.0 mmol/L (0.4-2.0) 2.5 mmol/L (0.4-2.0) White Blood Count 23.5 x10^3/uL (4.0-11.0) Red Blood Count 4.42 x10^6/uL (4.30-5.70) Hemoglobin 12.7 g/dL (13.0-17.5) Hematocrit 37.9 % (39.0-53.0) Mean Corpuscular Volume 86 fL (79-100) Mean Corpuscular Hemoglobin 29 pg (25-35) Mean Corpuscular Hemoglobin Concent 34 g/dL (31-37) Red Cell Distribution Width 13.1 % (11.5-14.5) Platelet Count 182 x10^3/uL (140-400) Neutrophils (%) (Auto) 87 % (31-73) Lymphocytes (%) (Auto) 6 % (24-48) Monocytes (%) (Auto) 7 % (0-9) Eosinophils (%) (Auto) 0 % (0-3) Basophils (%) (Auto) 0 % (0-3) Neutrophils # (Auto) 20.3 x10^3uL (1.8-7.7) Lymphocytes # (Auto) 1.5 x10^3/uL (1.0-4.8) Monocytes # (Auto) 1.6 x10^3/uL (0.0-1.1) Eosinophils # (Auto) 0.0 x10^3/uL (0.0-0.7) Basophils # (Auto) 0.1 x10^3/uL (0.0-0.2) Creatinine 1.0 mg/dL (0.7-1.3) Estimated GFR (Cockcroft-Gault) 98.2 Vancomycin Level Trough 17.4 mcg/mL (10.0-20.0) Vancomycin Last Dose Date Vancomycin Last Dose Time 1200 Microbiology 04/17/18 Blood Culture - Preliminary, Resulted NO GROWTH AFTER 1 DAY Medications Current Medications Sodium Chloride 2,040 ml @ 2,040 mls/hr Q1H IV Last administered on at 10:42; Start 04/17/18 at 10:30; Stop 04/17/18 at 19:33; Status DC Sodium Chloride 500 ml @ 1,000 mls/hr PRN Q30MIN PRN IV SEE COMMENTS; Start 04/17/18 at 10:15; Stop 04/17/18 at 19:33; Status DC Vancomycin HCl (Vanco Per Pharmacy) 1 each PRN DAILY PRN MC SEE COMMENTS Last administered on 04/19/18at 02:55; Start 04/17/18 at 10:15 Piperacillin Sod/ Tazobactam Sod 3.375 gm/Sodium Chloride 50 ml @ 100 mls/hr Q6HRS IV Last administered on 04/19/18at 05:37; Start 04/17/18 at 18:00 Acetaminophen/ Hydrocodone Bitart (Lortab 5/325) 2 tab 1X ONCE PO Last administered on 04/17/18at 10:36; Start 04/17/18 at 10:30; Stop 04/17/18 at 10 :31; Status DC Vancomycin HCl 2 gm/Sodium Chloride 500 ml @ 250 mls/hr 1X ONCE IV Last administered on 04/17/18at 12:09; Start 04/17/18 at 10:45; Stop 04/17/18 at 12 :44; Status DC Piperacillin Sod/ Tazobactam Sod 4.5 gm/Sodium Chloride 100 ml @ 200 mls/hr 1X ONCE IV Last administered on 04/17/18at 11:27; Start 04/17/18 at 10:45; Stop 04/17/18 at 11:14; Status DC Iohexol (Omnipaque 300 Mg/ml) 75 ml 1X ONCE IV Last administered on at 10:45; Start 04/17/18 at 10:45; Stop 04/17/18 at 10:46; Status DC Info (CONTRAST GIVEN -- Rx MONITORING) 1 each PRN DAILY PRN MC SEE COMMENTS; Start 04/17/18 at 11:00; Stop 04/19/18 at 10:59 Ondansetron HCl (Zofran) 4 mg PRN Q8HRS PRN IV NAUSEA/VOMITING; Start at 12:30; Stop 04/18/18 at 12:29; Status DC Morphine Sulfate (Morphine Sulfate) 4 mg PRN Q2HR PRN IV PAIN Last administered on 04/17/18at 20:50; Start 04/17/18 at 12:30; Stop 04/18/18 at 12 :29; Status DC Acetaminophen (Tylenol) 650 mg PRN Q4HRS PRN PO FEVER; Start 04/17/18 at 12:30 ; Stop 04/18/18 at 12:29; Status DC Sodium Chloride 1,000 ml @ 125 mls/hr 1X ONCE IV ; Start 04/17/18 at 12:30; Stop 04/17/18 at 20:29; Status DC Propofol 20 ml @ As Directed STK-MED ONCE IV ; Start 04/17/18 at 12:43; Stop 04/17/18 at 12:44; Status DC Lidocaine HCl (Lidocaine Pf 2% Vial) 5 ml STK-MED ONCE .ROUTE ; Start 04/17/18 at 12:43; Stop 04/17/18 at 12:44; Status DC Fentanyl Citrate (Fentanyl 2ml Vial) 100 mcg STK-MED ONCE .ROUTE ; Start at 12:44; Stop 04/17/18 at 12:45; Status DC Rocuronium [place] (Zemuron) 50 mg STK-MED ONCE .ROUTE ; Start 04/17/18 at 12: 44; Stop 04/17/18 at 12:45; Status DC Fentanyl Citrate (Fentanyl 2ml Vial) 25 mcg PRN Q5MIN PRN IV MILD PAIN; Start 04/17/18 at 13:30; Stop 04/18/18 at 13:29; Status DC Fentanyl Citrate (Fentanyl 2ml Vial) 50 mcg PRN Q5MIN PRN IV MODERATE TO SEVERE PAIN; Start 04/17/18 at 13:30; Stop 04/18/18 at 13:29; Status DC Morphine Sulfate (Morphine Sulfate) 1 mg PRN Q10MIN PRN IV SEVERE PAIN; Start 04/17/18 at 13:30; Stop 04/18/18 at 13:29; Status DC Ringer's Solution 1,000 ml @ 30 mls/hr Q24H IV ; Start 04/17/18 at 13:29; Stop 04/18/18 at 01:28; Status DC Lidocaine HCl (Xylocaine-Mpf 1% 2ml Vial) 2 ml 1X PRN PRN ID IV START; Start 04/17/18 at 13:30; Stop 04/18/18 at 13:29; Status DC Hydromorphone HCl (Dilaudid) 0.5 mg PRN Q10MIN PRN IV SEV PAIN, Second choice; Start 04/17/18 at 13:30; Stop 04/18/18 at 13:29; Status DC Prochlorperazine Edisylate (Compazine) 5 mg PACU PRN PRN IV NAUSEA, MRX1; Start 04/17/18 at 13:30; Stop 04/18/18 at 13:29; Status DC Clindamycin Phosphate 50 ml @ 100 mls/hr Q8HRS IV Last administered on at 06:20; Start 04/17/18 at 14:00 Vancomycin HCl 1.25 gm/Sodium Chloride 250 ml @ 167 mls/hr Q12H IV Last administered on 04/19/18at 01:31; Start 04/18/18 at 00:00 Vancomycin HCl (Vancomycin Trough Level) 1 each 1X ONCE MC Last administered on 04/17/18at 14:00; Start 04/17/18 at 14:00; Stop 04/17/18 at 14:01; Status DC Vancomycin HCl (Vancomycin Trough Level) 1 each 1X ONCE MC Last administered on 04/19/18at 01:45; Start 04/19/18 at 01:00; Stop 04/19/18 at 01:01; Status DC Potassium Chloride (Klor-Con) 40 meq 1X ONCE PO ; Start 04/17/18 at 15:00; Stop 04/17/18 at 15:01; Status DC Acetaminophen (Tylenol) 650 mg PRN Q6HRS PRN PO FEVER; Start 04/17/18 at 14:45 Ondansetron HCl (Zofran) 4 mg PRN Q6HRS PRN IV NAUSEA/VOMITING; Start at 14:45; Stop 04/18/18 at 15:50; Status DC Morphine Sulfate (Morphine Sulfate) 2 mg PRN Q2HR PRN IV MODERATE TO SEVERE PAIN Last administered on 04/19/18at 06:21; Start 04/17/18 at 14:45 Tramadol HCl (Ultram) 50 mg PRN Q6HRS PRN PO MILD TO MODERATE PAIN; Start at 14:45 Docusate Sodium (Colace) 100 mg PRN DAILY PRN PO CONSTIPATION Last administered on 04/18/18at 22:28; Start 04/17/18 at 14:45 Sodium Chloride 1,000 ml @ 100 mls/hr Q10H IV Last administered on 04/18/18at 20:23; Start 04/17/18 at 14:45 Oxycodone/ Acetaminophen (Percocet 5/325) 1 tab PRN Q4HRS PRN PO SEVERE PAIN Last administered on 04/19/18at 05:39; Start 04/17/18 at 15:00 Bupivacaine HCl/ Epinephrine Bitart (Sensorcain-Mpf Epi 0.5%-1:[id number]) 30 ml STK -MED ONCE .ROUTE ; Start 04/17/18 at 13:53; Stop 04/17/18 at 14:54; Status DC Dexamethasone Sodium Phosphate (Decadron) 20 mg STK-MED ONCE .ROUTE ; Start at 15:49; Stop 04/17/18 at 15:50; Status DC Sevoflurane (Ultane) 15 ml STK-MED ONCE IH ; Start 04/17/18 at 15:49; Stop at 15:50; Status DC Ondansetron HCl (Zofran) 4 mg STK-MED ONCE .ROUTE ; Start 04/17/18 at 15:50; Stop 04/17/18 at 15:51; Status DC Sodium Chloride 1,000 ml @ 1,980 mls/hr Q31M IV Last administered on at 15:34; Start 04/18/18 at 12:15; Stop 04/18/18 at 13:15; Status DC Heparin Sodium (Porcine) (Heparin Sodium) 5,000 unit Q8HRS SQ Last administered on 04/19/18at 06:29; Start 10/19/18 at 15:30 Ondansetron HCl (Zofran) 4 mg PRN Q6HRS PRN IV NAUSEA/VOMITING; Start at 15:15 Vitamin A/Vitamin D (Vitamin A & D Ointment) 1 aniya PRN Q1HR PRN TP SKIN PROTECTION Last administered on 04/18/18at 16:42; Start 04/18/18 at 16:00 Lactobacillus Rhamnosus (Culturelle) 1 cap BID PO Last administered on at 20:23; Start 04/18/18 at 21:00 Vancomycin HCl (Vancomycin Trough Level) 1 each 1X ONCE MC ; Start 04/24/18 at 13:30; Stop 04/24/18 at 13:31 Active Scripts Active Azithromycin Tablet (Azithromycin) 250 Mg Tablet 1 Pkg PO UD Proair Hfa Inhaler (Albuterol Sulfate) 8.5 Gm Hfa.aer.ad 2 Puff INH PRN Q6HRS PRN Prednisone 20 Mg Tablet 2 Tab PO DAILY Vitals/I & O Vital Sign - Last 24 Hours 04/18/18 04/18/18 04/18/18 04/18/18 08:00 10:32 10:40 11:00 Temp 98.2 98.2 Pulse 92 Resp 16 16 18 B/P (MAP) 136/84 (101) Pulse Ox 98 O2 Delivery Room Air Room Air Room Air Room Air 04/18/18 04/18/18 04/18/18 04/18/18 14:44 14:58 15:00 17:49 Temp 98.2 98.2 Pulse 92 Resp 16 16 18 16 B/P (MAP) 136/84 (101) Pulse Ox 98 O2 Delivery Room Air Room Air Room Air Room Air 04/18/18 04/18/18 04/18/18 04/18/18 18:20 19:30 20:00 20:23 Temp 97.9 97.9 Pulse 90 Resp 16 18 18 B/P (MAP) 115/69 (84) Pulse Ox 95 O2 Delivery Room Air Room Air Room Air Room Air 04/18/18 04/18/18 04/19/18 04/19/18 21:30 23:40 03:42 05:39 Temp 97.6 97.9 97.6 97.9 Pulse 68 77 Resp 18 16 18 18 B/P (MAP) 128/81 (97) 121/70 (87) Pulse Ox 100 96 O2 Delivery Room Air Room Air Room Air Room Air 04/19/18 06:21 Resp 18 O2 Delivery Room Air Intake and Output 04/18/18 04/18/18 04/19/18 15:00 23:00 07:00 Intake Total 120 ml 780 ml Output Total 850 ml Balance 120 ml -70 ml AGUSTÍN RICKS MD Apr 19, 2018 07:36
--- NOTE | 2018-04-19 09:23 | PDOC ---
SURGICAL PROGRESS NOTE Subjective Patient doing okay does complain of some chills and aches at times Vital Signs Vital Signs Date Time Temp Pulse Resp B/P (MAP) Pulse Ox O2 Delivery O2 Flow Rate FiO2 04/19/18 07:00 97.7 76 16 119/71 (87) 95 Room Air 97.7 I&O Intake and Output 04/19/18 07:00 Intake Total 900 ml Output Total 850 ml Balance 50 ml Intake Oral 900 ml Output Urine Total 850 ml # Voids 3 PATIENT HAS A CONNOR: No General: Alert, Oriented X3, Cooperative, mild distress Skin: Other (right peritoneum wound is dressed tender to palpation) Labs Laboratory Tests Test 04/17/18 10:30 04/17/18 11:17 04/17/18 19:00 04/18/18 03:45 White Blood Count 24.3 x10^3/uL (4.0-11.0) 24.8 x10^3/uL (4.0-11.0) Red Blood Count 4.91 x10^6/uL (4.30-5.70) 4.59 x10^6/uL (4.30-5.70) Hemoglobin 14.4 g/dL (13.0-17.5) 13.3 g/dL (13.0-17.5) Hematocrit 41.7 % (39.0-53.0) 39.4 % (39.0-53.0) Mean Corpuscular Volume 85 fL (79-100) 86 fL (79-100) Mean Corpuscular Hemoglobin 29 pg (25-35) 29 pg (25-35) Mean Corpuscular Hemoglobin Concent 35 g/dL (31-37) 34 g/dL (31-37) Red Cell Distribution Width 12.5 % (11.5-14.5) 12.6 % (11.5-14.5) Platelet Count 174 x10^3/uL (140-400) 168 x10^3/uL (140-400) Neutrophils (%) (Auto) 85 % (31-73) 91 % (31-73) Lymphocytes (%) (Auto) 7 % (24-48) 4 % (24-48) Monocytes (%) (Auto) 8 % (0-9) 5 % (0-9) Eosinophils (%) (Auto) 0 % (0-3) 0 % (0-3) Basophils (%) (Auto) 0 % (0-3) 0 % (0-3) Neutrophils # (Auto) 20.6 x10^3uL (1.8-7.7) 22.6 x10^3uL (1.8-7.7) Lymphocytes # (Auto) 1.7 x10^3/uL (1.0-4.8) 0.9 x10^3/uL (1.0-4.8) Monocytes # (Auto) 2.0 x10^3/uL (0.0-1.1) 1.3 x10^3/uL (0.0-1.1) Eosinophils # (Auto) 0.0 x10^3/uL (0.0-0.7) 0.0 x10^3/uL (0.0-0.7) Basophils # (Auto) 0.1 x10^3/uL (0.0-0.2) 0.0 x10^3/uL (0.0-0.2) Segmented Neutrophils % 83 % (35-66) Band Neutrophils % 6 % (0-9) Lymphocytes % 5 % (24-48) Monocytes % 6 % (0-10) Platelet Estimate Adequate (ADEQUATE) Prothrombin Time 16.0 SEC (11.7-14.0) Prothromb Time International Ratio 1.3 (0.8-1.1) Activated Partial Thromboplast Time 35 SEC (24-38) Sodium Level 138 mmol/L (136-145) 142 mmol/L (136-145) Potassium Level 3.3 mmol/L (3.5-5.1) 3.7 mmol/L (3.5-5.1) Chloride Level 103 mmol/L (98-107) 104 mmol/L (98-107) Carbon Dioxide Level 22 mmol/L (21-32) 25 mmol/L (21-32) Anion Gap 13 (6-14) 13 (6-14) Blood Urea Nitrogen 8 mg/dL (8-26) 11 mg/dL (8-26) Creatinine 1.1 mg/dL (0.7-1.3) 1.1 mg/dL (0.7-1.3) Estimated GFR (Cockcroft-Gault) 88.0 88.0 BUN/Creatinine Ratio 7 (6-20) Glucose Level 120 mg/dL (70-99) 191 mg/dL (70-99) Calcium Level 9.2 mg/dL (8.5-10.1) 8.9 mg/dL (8.5-10.1) Total Bilirubin 0.8 mg/dL (0.2-1.0) Aspartate Amino Transf (AST/SGOT) 14 U/L (15-37) Alanine Aminotransferase (ALT/SGPT) 21 U/L (16-63) Alkaline Phosphatase 79 U/L (46-116) Total Protein 7.7 g/dL (6.4-8.2) Albumin 3.1 g/dL (3.4-5.0) Albumin/Globulin Ratio 0.7 (1.0-1.7) Procalcitonin 0.61 ng/mL (0.00-0.10) Lactic Acid Level 3.1 mmol/L (0.4-2.0) 1.6 mmol/L (0.4-2.0) 2.8 mmol/L (0.4-2.0) Test 04/18/18 08:50 04/18/18 21:45 04/19/18 02:00 Lactic Acid Level 3.0 mmol/L (0.4-2.0) 2.5 mmol/L (0.4-2.0) White Blood Count 23.5 x10^3/uL (4.0-11.0) Red Blood Count 4.42 x10^6/uL (4.30-5.70) Hemoglobin 12.7 g/dL (13.0-17.5) Hematocrit 37.9 % (39.0-53.0) Mean Corpuscular Volume 86 fL (79-100) Mean Corpuscular Hemoglobin 29 pg (25-35) Mean Corpuscular Hemoglobin Concent 34 g/dL (31-37) Red Cell Distribution Width 13.1 % (11.5-14.5) Platelet Count 182 x10^3/uL (140-400) Neutrophils (%) (Auto) 87 % (31-73) Lymphocytes (%) (Auto) 6 % (24-48) Monocytes (%) (Auto) 7 % (0-9) Eosinophils (%) (Auto) 0 % (0-3) Basophils (%) (Auto) 0 % (0-3) Neutrophils # (Auto) 20.3 x10^3uL (1.8-7.7) Lymphocytes # (Auto) 1.5 x10^3/uL (1.0-4.8) Monocytes # (Auto) 1.6 x10^3/uL (0.0-1.1) Eosinophils # (Auto) 0.0 x10^3/uL (0.0-0.7) Basophils # (Auto) 0.1 x10^3/uL (0.0-0.2) Creatinine 1.0 mg/dL (0.7-1.3) Estimated GFR (Cockcroft-Gault) 98.2 Vancomycin Level Trough 17.4 mcg/mL (10.0-20.0) Vancomycin Last Dose Date [id number] Vancomycin Last Dose Time 1200 Laboratory Tests Test 04/18/18 21:45 04/19/18 02:00 Lactic Acid Level 2.5 mmol/L (0.4-2.0) White Blood Count 23.5 x10^3/uL (4.0-11.0) Red Blood Count 4.42 x10^6/uL (4.30-5.70) Hemoglobin 12.7 g/dL (13.0-17.5) Hematocrit 37.9 % (39.0-53.0) Mean Corpuscular Volume 86 fL (79-100) Mean Corpuscular Hemoglobin 29 pg (25-35) Mean Corpuscular Hemoglobin Concent 34 g/dL (31-37) Red Cell Distribution Width 13.1 % (11.5-14.5) Platelet Count 182 x10^3/uL (140-400) Neutrophils (%) (Auto) 87 % (31-73) Lymphocytes (%) (Auto) 6 % (24-48) Monocytes (%) (Auto) 7 % (0-9) Eosinophils (%) (Auto) 0 % (0-3) Basophils (%) (Auto) 0 % (0-3) Neutrophils # (Auto) 20.3 x10^3uL (1.8-7.7) Lymphocytes # (Auto) 1.5 x10^3/uL (1.0-4.8) Monocytes # (Auto) 1.6 x10^3/uL (0.0-1.1) Eosinophils # (Auto) 0.0 x10^3/uL (0.0-0.7) Basophils # (Auto) 0.1 x10^3/uL (0.0-0.2) Creatinine 1.0 mg/dL (0.7-1.3) Estimated GFR (Cockcroft-Gault) 98.2 Vancomycin Level Trough 17.4 mcg/mL (10.0-20.0) Vancomycin Last Dose Date [id number] Vancomycin Last Dose Time 1200 Problem List Problems Medical Problems: (1) Tachycardia Status: Acute Assessment/Plan Status post I&D of right peritoneum abscess cultures pending the cultures were negative White count slowly drifting downward patient is afebrile Continue local wound care IV antibiotics per ID VICK VALLE MD Apr 19, 2018 09:23
[2018-04-19] MEDS ORDERED: BISACODYL 10 MG SUPP.RECT. PR ONE (10:00)
--- NOTE | 2018-04-19 10:05 | PDOC ---
Infectious Disease Note Subjective Subjective c/o perineal pain, some abdominal bloating and constipation No BM in 3 days now Denies N/V Denies F/C/S ROS ROS per HPI otherwise neg Vital Sign Vital Signs Vital Signs Date Time Temp Pulse Resp B/P (MAP) Pulse Ox O2 Delivery O2 Flow Rate FiO2 04/19/18 07:00 97.7 76 16 119/71 (87) 95 Room Air 97.7 Physical Exam PHYSICAL EXAM GENERAL: Propped up in bed, alert, relaxed appearance HEENT: Pupils equal and reactive. Normal conjunctivae. Oral cavity, pharynx is clear. NECK: Supple. LUNGS: Clear to auscultation bilaterally. HEART: S1, S2. ABDOMEN: Mildly protuberant, soft, no guarding, no tenderness. EXTREMITIES: No clubbing, cyanosis or gross edema. SKIN: Multiple tattoos. No generalized rash. Perineal wound packed [employer] INSPECTOR: Alert and oriented Labs Lab Laboratory Tests Test 04/18/18 21:45 04/19/18 02:00 Lactic Acid Level 2.5 mmol/L (0.4-2.0) White Blood Count 23.5 x10^3/uL (4.0-11.0) Red Blood Count 4.42 x10^6/uL (4.30-5.70) Hemoglobin 12.7 g/dL (13.0-17.5) Hematocrit 37.9 % (39.0-53.0) Mean Corpuscular Volume 86 fL (79-100) Mean Corpuscular Hemoglobin 29 pg (25-35) Mean Corpuscular Hemoglobin Concent 34 g/dL (31-37) Red Cell Distribution Width 13.1 % (11.5-14.5) Platelet Count 182 x10^3/uL (140-400) Neutrophils (%) (Auto) 87 % (31-73) Lymphocytes (%) (Auto) 6 % (24-48) Monocytes (%) (Auto) 7 % (0-9) Eosinophils (%) (Auto) 0 % (0-3) Basophils (%) (Auto) 0 % (0-3) Neutrophils # (Auto) 20.3 x10^3uL (1.8-7.7) Lymphocytes # (Auto) 1.5 x10^3/uL (1.0-4.8) Monocytes # (Auto) 1.6 x10^3/uL (0.0-1.1) Eosinophils # (Auto) 0.0 x10^3/uL (0.0-0.7) Basophils # (Auto) 0.1 x10^3/uL (0.0-0.2) Creatinine 1.0 mg/dL (0.7-1.3) Estimated GFR (Cockcroft-Gault) 98.2 Vancomycin Level Trough 17.4 mcg/mL (10.0-20.0) Vancomycin Last Dose Date Vancomycin Last Dose Time 1200 Micro BLOOD CULTURE Preliminary NO GROWTH AFTER 1 DAY Objective Assessment Sepsis. Leukocytosis - stable Right buttock abscess. s/p I and D on 04/17. Intra-op cultures pending Lactic acidosis. Plan Plan of Care Cont Vanc, Zosyn and clinda Trough 17.4 Awaiting culture results Monitor labs/temp/renal function Pain management per primary Bowel regime - Nakita-Lax Patient seen, examined, I agree with above. Assessment and plan was formulated with [employer]. MOLLY QUIÑONES APRN Apr 19, 2018 10:05 THEE ORTIZ MD Apr 19, 2018 15:33
[2018-04-19] MEDS: LACTOBACILLUS RHAMNOSUS GG 1 CAPSULE. PO SCH ×2 (10:31→21:00)
[2018-04-19] MEDS: POLYETHYLENE GLYCOL 3350 17 GM PACKET. PO SCH (10:31)
[2018-04-19] MEDS: IV NORMAL SALINE 1000ML BAG 1,000 ML IV SCH (10:32)
[2018-04-19 11:00] VITALS: BP 138/80
[2018-04-19 15:00] VITALS: BP 132/76
[2018-04-19 19:00] VITALS: BP 138/77
[2018-04-19 23:00] VITALS: BP 123/76
[2018-04-20] MEDS: PIPERACILLIN/TAZOBACTAM 3.375 GM in IV NORMAL SALINE 50ML 50 ML IV SCH ×4 (00:07→18:40)
[2018-04-20] MEDS: VANCOMYCIN 1.25 GM in IV NORMAL SALINE 250ML 250 ML IV SCH (01:29)
[2018-04-20 03:00] VITALS: BP 131/75
[2018-04-20] MEDS: IV NORMAL SALINE 1000ML BAG 1,000 ML IV SCH ×4 (05:24→16:46)
[2018-04-20 05:44] LABS: GFR 98.2
[2018-04-20] MEDS: CLINDAMYCIN 600MG PREMIX 50 ML IV SCH ×3 (06:03→21:52)
[2018-04-20] MEDS: MORPHINE SULFATE 2 MG/ML VIAL. IV PRN ×3 (06:07→21:55)
[2018-04-20] MEDS: HEPARIN for SUB-Q USE 5,000 UNIT/ML VIAL. SQ SCH ×3 (06:13→21:58)
[2018-04-20 07:00] VITALS: BP 130/84
--- NOTE | 2018-04-20 07:30 | PDOC ---
PROGRESS NOTES Chief Complaint Chief Complaint Sepsis Right gluteal abscess History of Present Illness History of Present Illness Patient is a 43 year old male w/ no significant PMHx admitted c/o an abscess on the right buttock area. S/p ID on 04/17/18. He said he has had right buttock pain, swelling, some white discharge for 5ds, with T 102, Chills daily. He denies injury or bug biten. WBC 24, LA 3. HR 110S on admission, was septic due to this. CT abdomen - 1. There is nonspecific inflammatory change centered in the fat of the medial right thigh proximally without discrete drainable fluid collection /abscess, inferior extent not fully included. 2. There are nonspecific inguinal nodes bilaterally, largest on the right, nonspecific and possibly reactive although clinical follow-up recommended. 3. There is a small fat-containing umbilical hernia. Tolerated I&D well, was feeling rigors and chills after, still a little today. Having more pain today, but otherwise feeling ok. No BM. WBC still up. Denies SOB, but does have slight cough that is improving. In better spirits today. Denies CP. has an appetite improving. A/P: Right gluteal cellulitis/abscess - ID following, clindamycin, zosyn, vancomycin. Increase pain control h/o drug use with cocaine, marijuana - sober currently 2/2 incarceration, counseled Sepsis - secondary to abscess, lactate still up, will cont IVF for now hypokalemia - monitor and replace mild malnutrition - likely 2/2 abscess, will control nausea so he will eat General diet dvt ppx - heparin Full Code Inpatient for sepsis secondary to abscess Vitals Vitals Vital Signs Date Time Temp Pulse Resp B/P (MAP) Pulse Ox O2 Delivery O2 Flow Rate FiO2 04/20/18 06:37 20 Room Air 04/20/18 03:00 98.4 69 131/75 (93 96 98.4 Physical Exam Physical Exam GENERAL: Propped up in bed, alert, relaxed appearance HEENT: Pupils equal and reactive. Normal conjunctivae. Oral cavity, pharynx is clear. NECK: Supple. LUNGS: Clear to auscultation bilaterally. HEART: S1, S2. ABDOMEN: Mildly protuberant, soft, no guarding, no tenderness. EXTREMITIES: No clubbing, cyanosis or gross edema. SKIN: Multiple tattoos. No generalized rash. Perineal wound packed MANAGER MERCHANDISE: Alert and oriented General: Alert, Oriented X3, Cooperative, mild distress Heart: Regular rate, No murmurs Abdomen: Normal bowel sounds, Soft, No tenderness Extremities: No clubbing, No edema Skin: Other (right peritoneum wound is dressed tender to palpation) Labs LABS Laboratory Tests Test 04/20/18 05:05 Creatinine 1.0 mg/dL (0.7-1.3) Estimated GFR (Cockcroft-Gault) 98.2 Assessment and Plan Assessmemt and Plan Problems Medical Problems: (1) Tachycardia Status: Acute Comment Review of Relevant I have reviewed the following items parish (where applicable) has been applied. Labs Laboratory Tests Test 04/18/18 08:50 04/18/18 21:45 04/19/18 02:00 04/20/18 05:05 Lactic Acid Level 3.0 mmol/L (0.4-2.0) 2.5 mmol/L (0.4-2.0) White Blood Count 23.5 x10^3/uL (4.0-11.0) Red Blood Count 4.42 x10^6/uL (4.30-5.70) Hemoglobin 12.7 g/dL (13.0-17.5) Hematocrit 37.9 % (39.0-53.0) Mean Corpuscular Volume 86 fL (79-100) Mean Corpuscular Hemoglobin 29 pg (25-35) Mean Corpuscular Hemoglobin Concent 34 g/dL (31-37) Red Cell Distribution Width 13.1 % (11.5-14.5) Platelet Count 182 x10^3/uL (140-400) Neutrophils (%) (Auto) 87 % (31-73) Lymphocytes (%) (Auto) 6 % (24-48) Monocytes (%) (Auto) 7 % (0-9) Eosinophils (%) (Auto) 0 % (0-3) Basophils (%) (Auto) 0 % (0-3) Neutrophils # (Auto) 20.3 x10^3uL (1.8-7.7) Lymphocytes # (Auto) 1.5 x10^3/uL (1.0-4.8) Monocytes # (Auto) 1.6 x10^3/uL (0.0-1.1) Eosinophils # (Auto) 0.0 x10^3/uL (0.0-0.7) Basophils # (Auto) 0.1 x10^3/uL (0.0-0.2) Creatinine 1.0 mg/dL (0.7-1.3) 1.0 mg/dL (0.7-1.3) Estimated GFR (Cockcroft-Gault) 98.2 98.2 Vancomycin Level Trough 17.4 mcg/mL (10.0-20.0) Vancomycin Last Dose Date Vancomycin Last Dose Time 1200 Laboratory Tests Test 04/20/18 05:05 Creatinine 1.0 mg/dL (0.7-1.3) Estimated GFR (Cockcroft-Gault) 98.2 Microbiology 04/17/18 Blood Culture - Preliminary, Resulted NO GROWTH AFTER 2 DAYS 04/17/18 Anaerobic/Aerobic Culture, Resulted Pending 04/17/18 Anaerobic Culture Result 1 (BRIDGET), Resulted Pending 04/17/18 Aerobic Culture, Resulted Pending 04/17/18 Aerobic Culture Result 1 (BRIDGET), Resulted Pending 04/17/18 Gram Stain - Final, Resulted 04/17/18 Gram Stain Result 1 (BRIDGET) - Final, Resulted 04/17/18 Gram Stain Result 2 (BRIDGET) - Final, Resulted Medications Current Medications Sodium Chloride 2,040 ml @ 2,040 mls/hr Q1H IV Last administered on at 10:42; Start 04/17/18 at 10:30; Stop 04/17/18 at 19:33; Status DC Sodium Chloride 500 ml @ 1,000 mls/hr PRN Q30MIN PRN IV SEE COMMENTS; Start 04/17/18 at 10:15; Stop 04/17/18 at 19:33; Status DC Vancomycin HCl (Vanco Per Pharmacy) 1 each PRN DAILY PRN MC SEE COMMENTS Last administered on 04/19/18at 02:55; Start 04/17/18 at 10:15 Piperacillin Sod/ Tazobactam Sod 3.375 gm/Sodium Chloride 50 ml @ 100 mls/hr Q6HRS IV Last administered on 04/20/18at 05:24; Start 04/17/18 at 18:00 Acetaminophen/ Hydrocodone Bitart (Lortab 5/325) 2 tab 1X ONCE PO Last administered on 04/17/18at 10:36; Start 04/17/18 at 10:30; Stop 04/17/18 at 10 :31; Status DC Vancomycin HCl 2 gm/Sodium Chloride 500 ml @ 250 mls/hr 1X ONCE IV Last administered on 04/17/18at 12:09; Start 04/17/18 at 10:45; Stop 04/17/18 at 12 :44; Status DC Piperacillin Sod/ Tazobactam Sod 4.5 gm/Sodium Chloride 100 ml @ 200 mls/hr 1X ONCE IV Last administered on 04/17/18at 11:27; Start 04/17/18 at 10:45; Stop 04/17/18 at 11:14; Status DC Iohexol (Omnipaque 300 Mg/ml) 75 ml 1X ONCE IV Last administered on at 10:45; Start 04/17/18 at 10:45; Stop 04/17/18 at 10:46; Status DC Info (CONTRAST GIVEN -- Rx MONITORING) 1 each PRN DAILY PRN MC SEE COMMENTS; Start 04/17/18 at 11:00; Stop 04/19/18 at 10:59; Status DC Ondansetron HCl (Zofran) 4 mg PRN Q8HRS PRN IV NAUSEA/VOMITING; Start at 12:30; Stop 04/18/18 at 12:29; Status DC Morphine Sulfate (Morphine Sulfate) 4 mg PRN Q2HR PRN IV PAIN Last administered on 04/17/18at 20:50; Start 04/17/18 at 12:30; Stop 04/18/18 at 12 :29; Status DC Acetaminophen (Tylenol) 650 mg PRN Q4HRS PRN PO FEVER; Start 04/17/18 at 12:30 ; Stop 04/18/18 at 12:29; Status DC Sodium Chloride 1,000 ml @ 125 mls/hr 1X ONCE IV ; Start 04/17/18 at 12:30; Stop 04/17/18 at 20:29; Status DC Propofol 20 ml @ As Directed STK-MED ONCE IV ; Start 04/17/18 at 12:43; Stop 04/17/18 at 12:44; Status DC Lidocaine HCl (Lidocaine Pf 2% Vial) 5 ml STK-MED ONCE .ROUTE ; Start 04/17/18 at 12:43; Stop 04/17/18 at 12:44; Status DC Fentanyl Citrate (Fentanyl 2ml Vial) 100 mcg STK-MED ONCE .ROUTE ; Start at 12:44; Stop 04/17/18 at 12:45; Status DC Rocuronium [place] (Zemuron) 50 mg STK-MED ONCE .ROUTE ; Start 04/17/18 at 12: 44; Stop 04/17/18 at 12:45; Status DC Fentanyl Citrate (Fentanyl 2ml Vial) 25 mcg PRN Q5MIN PRN IV MILD PAIN; Start 04/17/18 at 13:30; Stop 04/18/18 at 13:29; Status DC Fentanyl Citrate (Fentanyl 2ml Vial) 50 mcg PRN Q5MIN PRN IV MODERATE TO SEVERE PAIN; Start 04/17/18 at 13:30; Stop 04/18/18 at 13:29; Status DC Morphine Sulfate (Morphine Sulfate) 1 mg PRN Q10MIN PRN IV SEVERE PAIN; Start 04/17/18 at 13:30; Stop 04/18/18 at 13:29; Status DC Ringer's Solution 1,000 ml @ 30 mls/hr Q24H IV ; Start 04/17/18 at 13:29; Stop 04/18/18 at 01:28; Status DC Lidocaine HCl (Xylocaine-Mpf 1% 2ml Vial) 2 ml 1X PRN PRN ID IV START; Start 04/17/18 at 13:30; Stop 04/18/18 at 13:29; Status DC Hydromorphone HCl (Dilaudid) 0.5 mg PRN Q10MIN PRN IV SEV PAIN, Second choice; Start 04/17/18 at 13:30; Stop 04/18/18 at 13:29; Status DC Prochlorperazine Edisylate (Compazine) 5 mg PACU PRN PRN IV NAUSEA, MRX1; Start 04/17/18 at 13:30; Stop 04/18/18 at 13:29; Status DC Clindamycin Phosphate 50 ml @ 100 mls/hr Q8HRS IV Last administered on at 06:03; Start 04/17/18 at 14:00 Vancomycin HCl 1.25 gm/Sodium Chloride 250 ml @ 167 mls/hr Q12H IV Last administered on 04/20/18at 01:29; Start 04/18/18 at 00:00 Vancomycin HCl (Vancomycin Trough Level) 1 each 1X ONCE MC Last administered on 04/17/18at 14:00; Start 04/17/18 at 14:00; Stop 04/17/18 at 14:01; Status DC Vancomycin HCl (Vancomycin Trough Level) 1 each 1X ONCE MC Last administered on 04/19/18at 01:45; Start 04/19/18 at 01:00; Stop 04/19/18 at 01:01; Status DC Potassium Chloride (Klor-Con) 40 meq 1X ONCE PO ; Start 04/17/18 at 15:00; Stop 04/17/18 at 15:01; Status DC Acetaminophen (Tylenol) 650 mg PRN Q6HRS PRN PO FEVER; Start 04/17/18 at 14:45 Ondansetron HCl (Zofran) 4 mg PRN Q6HRS PRN IV NAUSEA/VOMITING; Start at 14:45; Stop 04/18/18 at 15:50; Status DC Morphine Sulfate (Morphine Sulfate) 2 mg PRN Q2HR PRN IV MODERATE TO SEVERE PAIN Last administered on 04/20/18at 06:07; Start 04/17/18 at 14:45 Tramadol HCl (Ultram) 50 mg PRN Q6HRS PRN PO MILD TO MODERATE PAIN; Start at 14:45 Docusate Sodium (Colace) 100 mg PRN DAILY PRN PO CONSTIPATION Last administered on 04/18/18at 22:28; Start 04/17/18 at 14:45 Sodium Chloride 1,000 ml @ 100 mls/hr Q10H IV Last administered on 04/20/18at 05:24; Start 04/17/18 at 14:45 Oxycodone/ Acetaminophen (Percocet 5/325) 1 tab PRN Q4HRS PRN PO SEVERE PAIN Last administered on 04/19/18at 20:52; Start 04/17/18 at 15:00 Bupivacaine HCl/ Epinephrine Bitart (Sensorcain-Mpf Epi 0.5%-1:[id number]) 30 ml STK -MED ONCE .ROUTE ; Start 04/17/18 at 13:53; Stop 04/17/18 at 14:54; Status DC Dexamethasone Sodium Phosphate (Decadron) 20 mg STK-MED ONCE .ROUTE ; Start at 15:49; Stop 04/17/18 at 15:50; Status DC Sevoflurane (Ultane) 15 ml STK-MED ONCE IH ; Start 04/17/18 at 15:49; Stop at 15:50; Status DC Ondansetron HCl (Zofran) 4 mg STK-MED ONCE .ROUTE ; Start 04/17/18 at 15:50; Stop 04/17/18 at 15:51; Status DC Sodium Chloride 1,000 ml @ 1,980 mls/hr Q31M IV Last administered on at 15:34; Start 04/18/18 at 12:15; Stop 04/18/18 at 13:15; Status DC Heparin Sodium (Porcine) (Heparin Sodium) 5,000 unit Q8HRS SQ Last administered on 04/20/18at 06:13; Start 04/18/18 at 15:30 Ondansetron HCl (Zofran) 4 mg PRN Q6HRS PRN IV NAUSEA/VOMITING; Start at 15:15 Vitamin A/Vitamin D (Vitamin A & D Ointment) 1 ainya PRN Q1HR PRN TP SKIN PROTECTION Last administered on 04/18/18at 16:42; Start 04/18/18 at 16:00 Lactobacillus Rhamnosus (Culturelle) 1 cap BID PO Last administered on at 21:00; Start 04/18/18 at 21:00 Vancomycin HCl (Vancomycin Trough Level) 1 each 1X ONCE MC ; Start 04/24/18 at 13:30; Stop 04/24/18 at 13:31 Polyethylene Glycol (miraLAX PACKET) 17 gm DAILY PO Last administered on at 10:31; Start 04/19/18 at 10:00 Bisacodyl (Dulcolax Supp) 10 mg 1X ONCE SD Last administered on 04/19/18at 10: 31; Start 04/19/18 at 10:00; Stop 04/19/18 at 10:01; Status DC Active Scripts Active Azithromycin Tablet (Azithromycin) 250 Mg Tablet 1 Pkg PO UD Proair Hfa Inhaler (Albuterol Sulfate) 8.5 Gm Hfa.aer.ad 2 Puff INH PRN Q6HRS PRN Prednisone 20 Mg Tablet 2 Tab PO DAILY Vitals/I & O Vital Sign - Last 24 Hours 04/19/18 04/19/18 04/19/18 04/19/18 08:00 11:00 15:00 15:36 Temp 97.9 97.9 97.9 97.9 Pulse 71 62 Resp 18 18 20 B/P (MAP) 138/80 (99) 132/76 (94) Pulse Ox 95 97 O2 Delivery Room Air Room Air Room Air Room Air 04/19/18 04/19/18 04/19/18 04/19/18 19:00 19:34 19:40 20:52 Temp 98.2 98.2 Pulse 67 Resp 18 20 20 B/P (MAP) 138/77 (97) Pulse Ox 96 O2 Delivery Room Air Room Air Room Air Room Air 04/19/18 04/19/18 04/20/18 04/20/18 21:52 23:00 03:00 06:07 Temp 98.6 98.4 98.6 98.4 Pulse 73 69 Resp 20 18 18 20 B/P (MAP) 123/76 (92) 131/75 (93) Pulse Ox 96 96 O2 Delivery Room Air Room Air Room Air 04/20/18 06:37 Resp 20 O2 Delivery Room Air Intake and Output 04/19/18 04/19/18 04/20/18 15:00 23:00 07:00 Intake Total 300 ml 3860 ml Output Total 400 ml 300 ml Balance -100 ml 3560 ml AGUSTÍN RICKS MD Apr 20, 2018 07:30
[2018-04-20] MEDS: LACTOBACILLUS RHAMNOSUS GG 1 CAPSULE. PO SCH ×2 (08:03→20:56)
[2018-04-20] MEDS: oxyCODONE/APAP 5/325 1 TAB TABLET PO PRN ×4 (08:04→20:57)
[2018-04-20] MEDS: POLYETHYLENE GLYCOL 3350 17 GM PACKET. PO SCH (08:06)
--- NOTE | 2018-04-20 09:37 | PDOC ---
SURGICAL PROGRESS NOTE Subjective Feels like he is doing better less pain Vital Signs Vital Signs Date Time Temp Pulse Resp B/P (MAP) Pulse Ox O2 Delivery O2 Flow Rate FiO2 04/20/18 08:04 Room Air 04/20/18 07:00 97.9 67 18 130/84 (99) 96 97.9 I&O Intake and Output 04/20/18 07:00 Intake Total 4160 ml Output Total 700 ml Balance 3460 ml Intake Oral 1260 ml IV Total 1200 ml Other 1700 ml Output Urine Total 700 ml # Voids 3 # Bowel Movements 1 PATIENT HAS A CONNOR: No General: Alert, Oriented X3, Cooperative, mild distress Skin: Other (decreased swelling in the peritoneum tissue softer less erythema reel tender to palpation) Labs Laboratory Tests Test 04/18/18 21:45 04/19/18 02:00 04/20/18 05:05 Lactic Acid Level 2.5 mmol/L (0.4-2.0) White Blood Count 23.5 x10^3/uL (4.0-11.0) Red Blood Count 4.42 x10^6/uL (4.30-5.70) Hemoglobin 12.7 g/dL (13.0-17.5) Hematocrit 37.9 % (39.0-53.0) Mean Corpuscular Volume 86 fL (79-100) Mean Corpuscular Hemoglobin 29 pg (25-35) Mean Corpuscular Hemoglobin Concent 34 g/dL (31-37) Red Cell Distribution Width 13.1 % (11.5-14.5) Platelet Count 182 x10^3/uL (140-400) Neutrophils (%) (Auto) 87 % (31-73) Lymphocytes (%) (Auto) 6 % (24-48) Monocytes (%) (Auto) 7 % (0-9) Eosinophils (%) (Auto) 0 % (0-3) Basophils (%) (Auto) 0 % (0-3) Neutrophils # (Auto) 20.3 x10^3uL (1.8-7.7) Lymphocytes # (Auto) 1.5 x10^3/uL (1.0-4.8) Monocytes # (Auto) 1.6 x10^3/uL (0.0-1.1) Eosinophils # (Auto) 0.0 x10^3/uL (0.0-0.7) Basophils # (Auto) 0.1 x10^3/uL (0.0-0.2) Creatinine 1.0 mg/dL (0.7-1.3) 1.0 mg/dL (0.7-1.3) Estimated GFR (Cockcroft-Gault) 98.2 98.2 Vancomycin Level Trough 17.4 mcg/mL (10.0-20.0) Vancomycin Last Dose Date [id number] Vancomycin Last Dose Time 1200 Laboratory Tests Test 04/20/18 05:05 Creatinine 1.0 mg/dL (0.7-1.3) Estimated GFR (Cockcroft-Gault) 98.2 Problem List Problems Medical Problems: (1) Tachycardia Status: Acute Assessment/Plan Status post incision and drainage of right peritoneum abscess Continue local wound care antibiotics per VICK MEJIA MD Apr 20, 2018 09:37
[2018-04-20 11:00] VITALS: BP 139/82
[2018-04-20] MEDS: VANCOMYCIN PER PHARMACY MC PRN (11:07)
--- NOTE | 2018-04-20 11:23 | PDOC ---
Infectious Disease Note Subjective Subjective + BM yesterday after taking laxative Pain controlled Denies N/V Denies F/C/S ROS ROS per HPI otherwise neg Vital Sign Vital Signs Vital Signs Date Time Temp Pulse Resp B/P (MAP) Pulse Ox O2 Delivery O2 Flow Rate FiO2 04/20/18 11:00 97.9 78 18 139/82 (101) 99 Room Air 97.9 Physical Exam PHYSICAL EXAM GENERAL: Lying down, NAD HEENT: Oral cavity, pharynx is clear. NECK: Supple. LUNGS: Clear to auscultation bilaterally. HEART: S1, S2. ABDOMEN: Soft, no tender, BS present EXTREMITIES: No clubbing, cyanosis or gross edema. SKIN: Multiple tattoos. No generalized rash. Perineal wound packed GLASS OR MIRROR INSPECTOR: Alert and oriented Labs Lab Laboratory Tests Test 04/20/18 05:05 Creatinine 1.0 mg/dL (0.7-1.3) Estimated GFR (Cockcroft-Gault) 98.2 Micro BLOOD CULTURE Preliminary NO GROWTH AFTER 2 DAY ANAEROBIC-AEROBIC CULTURE PENDING ANAEROBIC RES 1 PENDING AEROBIC CULT PENDING AEROBIC RES 1 PENDING GRAM STAIN Final Final report GRAM STAIN RES 1 Final Comment No white blood cells seen. GRAM STAIN RES 2 Final No organisms seen Objective Assessment Sepsis. Leukocytosis - stable Right buttock abscess. s/p I and D on 04/17. Intra-op cultures pending Lactic acidosis. Plan Plan of Care Cont , Zosyn and clinda DC IV Vanc Change to linezolid f/u culture results Monitor labs/temp/renal function Pain management per primary Bowel regime Patient seen, examined, I agree with above. Assessment and plan was formulated with SKIDDER. MOLLY QUIÑONES APRN Apr 20, 2018 11:23 THEE ORTIZ MD Apr 20, 2018 13:20
[2018-04-20] MEDS: LINEZOLID 600 MG TABLET PO SCH ×2 (13:54→20:55)
[2018-04-20 15:00] VITALS: BP 146/98
[2018-04-20] MEDS: VITS A & D/LANOLIN TOPICAL OINTMENT 56GM TUBE. TP PRN (16:41)
[2018-04-20 19:50] VITALS: BP 120/69
[2018-04-20 23:26] VITALS: BP 119/66
[2018-04-21 03:33] VITALS: BP 135/78
[2018-04-21] MEDS: oxyCODONE/APAP 5/325 1 TAB TABLET PO PRN ×2 (04:38→13:38)
[2018-04-21] MEDS: MORPHINE SULFATE 2 MG/ML VIAL. IV PRN (04:39)
[2018-04-21] MEDS: IV NORMAL SALINE 1000ML BAG 1,000 ML IV SCH (04:41)
[2018-04-21] MEDS: CLINDAMYCIN 600MG PREMIX 50 ML IV SCH (05:45)
[2018-04-21 06:19] LABS: BASO # 0.1 x10^3/uL (0.0-0.2); BASO % 1 % (0-3); EOS # 0.5 x10^3/uL (0.0-0.7); EOS % 4 % (0-3); HEMATOCRIT 41.4 % (39.0-53.0); HEMOGLOBIN 13.5 g/dL (13.0-17.5); LYMPH # 3.9 x10^3/uL (1.0-4.8); LYMPH % 30 % (24-48); MEAN CORPUSCULAR HEMOGLOBIN 28 pg (25-35); MEAN CORPUSCULAR HGB CONC 33 g/dL (31-37); MEAN CORPUSCULAR VOLUME 86 fL (79-100); MONO # 1.4 x10^3/uL (0.0-1.1); MONO % 11 % (0-9); NEUT % 54 % (31-73); PLATELET COUNT 264 x10^3/uL (140-400); RED BLOOD COUNT 4.84 x10^6/uL (4.30-5.70); RED CELL DISTRIBUTION WIDTH 13.2 % (11.5-14.5); WHITE BLOOD COUNT 12.8 x10^3/uL (4.0-11.0)
[2018-04-21] MEDS: PIPERACILLIN/TAZOBACTAM 3.375 GM in IV NORMAL SALINE 50ML 50 ML IV SCH ×3 (06:23)
[2018-04-21] MEDS: HEPARIN for SUB-Q USE 5,000 UNIT/ML VIAL. SQ SCH ×2 (06:27→13:41)
[2018-04-21 07:00] VITALS: BP 130/93
[2018-04-21 07:23] LABS: % BANDS 2 % (0-9); % EOS 4 % (0-5); % LYMPHS 32 % (24-48); % MONOS 10 % (0-10); % MYELOS 2 % (0-0); % SEGS 50 % (35-66)
[2018-04-21 07:24] LABS: PLT ESTIMATE ADEQUATE (ADEQUATE)
--- NOTE | 2018-04-21 08:31 | PDOC ---
JOY GANT JAVA ANALYST 04/21/18 0831: SURGICAL PROGRESS NOTE Subjective still painful, some improvement tolerating diet Vital Signs Vital Signs Date Time Temp Pulse Resp B/P (MAP) Pulse Ox O2 Delivery O2 Flow Rate FiO2 04/21/18 07:00 98.0 63 18 130/93 (105) 99 Room Air 98.0 I&O Intake and Output 04/21/18 07:00 Intake Total 3540 ml Output Total 1400 ml Balance 2140 ml Intake Oral 1140 ml IV Total 1200 ml Other 1200 ml Output Urine Total 1400 ml # Voids 5 General: Alert, Oriented X3, Cooperative, No acute distress Skin: Other (right buttock, tender to touch, wound clean, packing in place) Labs Laboratory Tests Test 04/20/18 05:05 04/21/18 05:40 Creatinine 1.0 mg/dL (0.7-1.3) Estimated GFR (Cockcroft-Gault) 98.2 White Blood Count 12.8 x10^3/uL (4.0-11.0) Red Blood Count 4.84 x10^6/uL (4.30-5.70) Hemoglobin 13.5 g/dL (13.0-17.5) Hematocrit 41.4 % (39.0-53.0) Mean Corpuscular Volume 86 fL (79-100) Mean Corpuscular Hemoglobin 28 pg (25-35) Mean Corpuscular Hemoglobin Concent 33 g/dL (31-37) Red Cell Distribution Width 13.2 % (11.5-14.5) Platelet Count 264 x10^3/uL (140-400) Neutrophils (%) (Auto) 54 % (31-73) Lymphocytes (%) (Auto) 30 % (24-48) Monocytes (%) (Auto) 11 % (0-9) Eosinophils (%) (Auto) 4 % (0-3) Basophils (%) (Auto) 1 % (0-3) Neutrophils # (Auto) 7.0 x10^3uL (1.8-7.7) Lymphocytes # (Auto) 3.9 x10^3/uL (1.0-4.8) Monocytes # (Auto) 1.4 x10^3/uL (0.0-1.1) Eosinophils # (Auto) 0.5 x10^3/uL (0.0-0.7) Basophils # (Auto) 0.1 x10^3/uL (0.0-0.2) Segmented Neutrophils % 50 % (35-66) Band Neutrophils % 2 % (0-9) Lymphocytes % 32 % (24-48) Monocytes % 10 % (0-10) Eosinophils % 4 % (0-5) Myelocytes % 2 % (0-0) Platelet Estimate Adequate (ADEQUATE) Laboratory Tests Test 04/21/18 05:40 White Blood Count 12.8 x10^3/uL (4.0-11.0) Red Blood Count 4.84 x10^6/uL (4.30-5.70) Hemoglobin 13.5 g/dL (13.0-17.5) Hematocrit 41.4 % (39.0-53.0) Mean Corpuscular Volume 86 fL (79-100) Mean Corpuscular Hemoglobin 28 pg (25-35) Mean Corpuscular Hemoglobin Concent 33 g/dL (31-37) Red Cell Distribution Width 13.2 % (11.5-14.5) Platelet Count 264 x10^3/uL (140-400) Neutrophils (%) (Auto) 54 % (31-73) Lymphocytes (%) (Auto) 30 % (24-48) Monocytes (%) (Auto) 11 % (0-9) Eosinophils (%) (Auto) 4 % (0-3) Basophils (%) (Auto) 1 % (0-3) Neutrophils # (Auto) 7.0 x10^3uL (1.8-7.7) Lymphocytes # (Auto) 3.9 x10^3/uL (1.0-4.8) Monocytes # (Auto) 1.4 x10^3/uL (0.0-1.1) Eosinophils # (Auto) 0.5 x10^3/uL (0.0-0.7) Basophils # (Auto) 0.1 x10^3/uL (0.0-0.2) Segmented Neutrophils % 50 % (35-66) Band Neutrophils % 2 % (0-9) Lymphocytes % 32 % (24-48) Monocytes % 10 % (0-10) Eosinophils % 4 % (0-5) Myelocytes % 2 % (0-0) Platelet Estimate Adequate (ADEQUATE) Problem List Problems Medical Problems: (1) Tachycardia Status: Acute Assessment/Plan s/p I&D continue wound care, abx VICK VALLE MD 04/21/18 0854: SURGICAL PROGRESS NOTE Assessment/Plan Agree with Kianna's assessment and plan. JOY GANT APRN Apr 21, 2018 08:31 VICK VALLE MD Apr 21, 2018 08:54
[2018-04-21] MEDS: LINEZOLID 600 MG TABLET PO SCH ×2 (08:55→15:51)
[2018-04-21] MEDS: LACTOBACILLUS RHAMNOSUS GG 1 CAPSULE. PO SCH (08:55)
[2018-04-21] MEDS: POLYETHYLENE GLYCOL 3350 17 GM PACKET. PO SCH (08:57)
--- NOTE | 2018-04-21 09:47 | PDOC ---
Infectious Disease Note Subjective Subjective feeling ok, cont to c/o pain ROS ROS no n/v/d/fever Vital Sign Vital Signs Vital Signs Date Time Temp Pulse Resp B/P (MAP) Pulse Ox O2 Delivery O2 Flow Rate FiO2 04/21/18 07:00 98.0 63 18 130/93 (105) 99 Room Air 98.0 Physical Exam PHYSICAL EXAM GENERAL: Lying down, NAD HEENT: Oral cavity, pharynx is clear. NECK: Supple. LUNGS: Clear to auscultation bilaterally. HEART: S1, S2. ABDOMEN: Soft, no tender, BS present EXTREMITIES: No clubbing, cyanosis or gross edema. SKIN: Multiple tattoos. No generalized rash. Perineal wound packed,, area seen , not much drainage, no induration CLIENT SALES AND SERVICE OFFICER: Alert and oriented Labs Lab Laboratory Tests Test 04/21/18 05:40 White Blood Count 12.8 x10^3/uL (4.0-11.0) Red Blood Count 4.84 x10^6/uL (4.30-5.70) Hemoglobin 13.5 g/dL (13.0-17.5) Hematocrit 41.4 % (39.0-53.0) Mean Corpuscular Volume 86 fL (79-100) Mean Corpuscular Hemoglobin 28 pg (25-35) Mean Corpuscular Hemoglobin Concent 33 g/dL (31-37) Red Cell Distribution Width 13.2 % (11.5-14.5) Platelet Count 264 x10^3/uL (140-400) Neutrophils (%) (Auto) 54 % (31-73) Lymphocytes (%) (Auto) 30 % (24-48) Monocytes (%) (Auto) 11 % (0-9) Eosinophils (%) (Auto) 4 % (0-3) Basophils (%) (Auto) 1 % (0-3) Neutrophils # (Auto) 7.0 x10^3uL (1.8-7.7) Lymphocytes # (Auto) 3.9 x10^3/uL (1.0-4.8) Monocytes # (Auto) 1.4 x10^3/uL (0.0-1.1) Eosinophils # (Auto) 0.5 x10^3/uL (0.0-0.7) Basophils # (Auto) 0.1 x10^3/uL (0.0-0.2) Segmented Neutrophils % 50 % (35-66) Band Neutrophils % 2 % (0-9) Lymphocytes % 32 % (24-48) Monocytes % 10 % (0-10) Eosinophils % 4 % (0-5) Myelocytes % 2 % (0-0) Platelet Estimate Adequate (ADEQUATE) Micro ANAEROBIC-AEROBIC CULTURE PENDING ANAEROBIC RES 1 PENDING AEROBIC CULT Preliminary Preliminary report AEROBIC RES 1 Preliminary Staphylococcus aureus 3+ GRAM STAIN Final Final report GRAM STAIN RES 1 Final Comment No white blood cells seen. GRAM STAIN RES 2 Final No organisms seen Performed at: - [facility] [id number], [place], [place] [id number] Endorsement Clerk: SYMONE Ma MD, Phone: [phone] Objective Assessment Sepsis. Leukocytosis - stable Right buttock abscess. s/p I and D on 04/17. Intra-op cultures pending Lactic acidosis. Plan Plan of Care staph susceptibility still not known pt can be d/c ed on zyvox po SHANI ORTIZ MD Apr 21, 2018 09:47
[2018-04-21 10:44] VITALS: BP 134/67
[2018-04-21 11:00] VITALS: BP 125/76
--- NOTE | 2018-04-21 13:06 | DISCH ---
DISCHARGE WITH HOME HEALTH DISCHARGE INFORMATION: Final Diagnosis: Problems Medical Problems: (1) Tachycardia Status: Acute Condition on Discharge: Stable CODE STATUS: Code Status: Full HOME HEALTH: Face to Face: I certify this patient is under my care and that I, or a nurse practitioner or physician's registered nurse first assistant working with me, had a face to face encounter that meets the physician face to face encounter requirements with this patient on []. Medical Complications: Other (Buttock wound) Physical Therapy For: Evalulation/Treatment Home Health Aide For: Self-care POST DISCHARGE ORDERS: Activity Instructions for Disc: No restrictions Weight Bearing Status after Di: No restrictions DIET AFTER DISCHARGE: Regular Wound/Incision Care: Other, see below (Wound care as per gen surgery) CERTIFICATION STATEMENT: Certification Statement: Certification Statement: Based on the above finding, I certify that this patient is confined to the home and needs intermittent senior living care, physical therapy and/or speech therapy, or continues to need occupational therapy.~ This patient is under my care, and I have initiated the establishment of the plan of care.~ This patient will be followed by myself or a community physician who will periodically review the plan of care. Home Meds Active Scripts Azithromycin (AZITHROMYCIN TABLET) 250 Mg Tablet, 1 PKG PO UD, #6 TAB Prov:GOLDIE CUENCA MD 09/12/16 Albuterol Sulfate (PROAIR HFA INHALER) 8.5 Gm Hfa.aer.ad, 2 PUFF INH PRN Q6HRS PRN for SHORTNESS OF BREATH, #1 INHALER 0 Refills Prov:GOLDIE CUENCA MD 09/12/16 Prednisone (PREDNISONE) 20 Mg Tablet, 2 TAB PO DAILY, #10 TAB Prov:GOLDIE CUENCA MD 09/12/16 ARIANNA SWIFT III DO Apr 21, 2018 13:06
--- NOTE | 2018-04-21 14:15 | PDOC ---
PROGRESS NOTES Chief Complaint Chief Complaint Right gluteal cellulitis/abscess Sepsis 2/2 to abscess H/o drug use with cocaine, marijuana - sober currently 2/2 incarceration Hypokalemia Mild malnutrition Nausea History of Present Illness History of Present Illness Pt seen and examined Discussed plan w/pt 2 correctional officers at bedside Vitals Vitals Vital Signs Date Time Temp Pulse Resp B/P (MAP) Pulse Ox O2 Delivery O2 Flow Rate FiO2 04/21/18 13:38 Nasal Cannula 04/21/18 11:00 97.6 63 18 125/76 (92) 99 97.6 Physical Exam Physical Exam HEENT: Oral cavity, pharynx is clear. Neck: Supple. General: Alert, Oriented X3, Cooperative, No acute distress Heart: Regular rate, Normal S1, Normal S2, No murmurs Lungs: Clear Abdomen: Normal bowel sounds, Soft, No tenderness Extremities: No clubbing, No edema Skin: No rashes, Other (right buttock, tender to touch, wound clean, packing in place) Labs LABS Laboratory Tests Test 04/21/18 05:40 White Blood Count 12.8 x10^3/uL (4.0-11.0) Red Blood Count 4.84 x10^6/uL (4.30-5.70) Hemoglobin 13.5 g/dL (13.0-17.5) Hematocrit 41.4 % (39.0-53.0) Mean Corpuscular Volume 86 fL (79-100) Mean Corpuscular Hemoglobin 28 pg (25-35) Mean Corpuscular Hemoglobin Concent 33 g/dL (31-37) Red Cell Distribution Width 13.2 % (11.5-14.5) Platelet Count 264 x10^3/uL (140-400) Neutrophils (%) (Auto) 54 % (31-73) Lymphocytes (%) (Auto) 30 % (24-48) Monocytes (%) (Auto) 11 % (0-9) Eosinophils (%) (Auto) 4 % (0-3) Basophils (%) (Auto) 1 % (0-3) Neutrophils # (Auto) 7.0 x10^3uL (1.8-7.7) Lymphocytes # (Auto) 3.9 x10^3/uL (1.0-4.8) Monocytes # (Auto) 1.4 x10^3/uL (0.0-1.1) Eosinophils # (Auto) 0.5 x10^3/uL (0.0-0.7) Basophils # (Auto) 0.1 x10^3/uL (0.0-0.2) Segmented Neutrophils % 50 % (35-66) Band Neutrophils % 2 % (0-9) Lymphocytes % 32 % (24-48) Monocytes % 10 % (0-10) Eosinophils % 4 % (0-5) Myelocytes % 2 % (0-0) Platelet Estimate Adequate (ADEQUATE) Review of Systems Review of Systems Denies chest pain, SOB or changes in bowel/bladder habits States pain is much better and well controlled Assessment and Plan Assessmemt and Plan Problems Medical Problems: (1) Tachycardia Status: Acute Assessment: Right gluteal cellulitis/abscess Sepsis 2/2 to abscess H/o drug use with cocaine, marijuana - sober currently 2/2 incarceration Hypokalemia Mild malnutrition Nausea Plan: Discharge to [facility] Wound care PO abx PO pain meds PRN Home meds Comment Review of Relevant I have reviewed the following items [place] (where applicable) has been applied. Labs Laboratory Tests Test 04/20/18 05:05 04/21/18 05:40 Creatinine 1.0 mg/dL (0.7-1.3) Estimated GFR (Cockcroft-Gault) 98.2 White Blood Count 12.8 x10^3/uL (4.0-11.0) Red Blood Count 4.84 x10^6/uL (4.30-5.70) Hemoglobin 13.5 g/dL (13.0-17.5) Hematocrit 41.4 % (39.0-53.0) Mean Corpuscular Volume 86 fL (79-100) Mean Corpuscular Hemoglobin 28 pg (25-35) Mean Corpuscular Hemoglobin Concent 33 g/dL (31-37) Red Cell Distribution Width 13.2 % (11.5-14.5) Platelet Count 264 x10^3/uL (140-400) Neutrophils (%) (Auto) 54 % (31-73) Lymphocytes (%) (Auto) 30 % (24-48) Monocytes (%) (Auto) 11 % (0-9) Eosinophils (%) (Auto) 4 % (0-3) Basophils (%) (Auto) 1 % (0-3) Neutrophils # (Auto) 7.0 x10^3uL (1.8-7.7) Lymphocytes # (Auto) 3.9 x10^3/uL (1.0-4.8) Monocytes # (Auto) 1.4 x10^3/uL (0.0-1.1) Eosinophils # (Auto) 0.5 x10^3/uL (0.0-0.7) Basophils # (Auto) 0.1 x10^3/uL (0.0-0.2) Segmented Neutrophils % 50 % (35-66) Band Neutrophils % 2 % (0-9) Lymphocytes % 32 % (24-48) Monocytes % 10 % (0-10) Eosinophils % 4 % (0-5) Myelocytes % 2 % (0-0) Platelet Estimate Adequate (ADEQUATE) Laboratory Tests Test 04/21/18 05:40 White Blood Count 12.8 x10^3/uL (4.0-11.0) Red Blood Count 4.84 x10^6/uL (4.30-5.70) Hemoglobin 13.5 g/dL (13.0-17.5) Hematocrit 41.4 % (39.0-53.0) Mean Corpuscular Volume 86 fL (79-100) Mean Corpuscular Hemoglobin 28 pg (25-35) Mean Corpuscular Hemoglobin Concent 33 g/dL (31-37) Red Cell Distribution Width 13.2 % (11.5-14.5) Platelet Count 264 x10^3/uL (140-400) Neutrophils (%) (Auto) 54 % (31-73) Lymphocytes (%) (Auto) 30 % (24-48) Monocytes (%) (Auto) 11 % (0-9) Eosinophils (%) (Auto) 4 % (0-3) Basophils (%) (Auto) 1 % (0-3) Neutrophils # (Auto) 7.0 x10^3uL (1.8-7.7) Lymphocytes # (Auto) 3.9 x10^3/uL (1.0-4.8) Monocytes # (Auto) 1.4 x10^3/uL (0.0-1.1) Eosinophils # (Auto) 0.5 x10^3/uL (0.0-0.7) Basophils # (Auto) 0.1 x10^3/uL (0.0-0.2) Segmented Neutrophils % 50 % (35-66) Band Neutrophils % 2 % (0-9) Lymphocytes % 32 % (24-48) Monocytes % 10 % (0-10) Eosinophils % 4 % (0-5) Myelocytes % 2 % (0-0) Platelet Estimate Adequate (ADEQUATE) Microbiology 04/17/18 Blood Culture - Preliminary, Resulted NO GROWTH AFTER 4 DAYS 04/17/18 Anaerobic/Aerobic Culture, Resulted Pending 04/17/18 Anaerobic Culture Result 1 (BRIDGET), Resulted Pending 04/17/18 Aerobic Culture - Preliminary, Resulted 04/17/18 Aerobic Culture Result 1 (BRIDGET) - Preliminary, Resulted 04/17/18 Gram Stain - Final, Resulted 04/17/18 Gram Stain Result 1 (BRIDGET) - Final, Resulted 04/17/18 Gram Stain Result 2 (BRIDGET) - Final, Resulted Medications Current Medications Sodium Chloride 2,040 ml @ 2,040 mls/hr Q1H IV Last administered on at 10:42; Start 04/17/18 at 10:30; Stop 04/17/18 at 19:33; Status DC Sodium Chloride 500 ml @ 1,000 mls/hr PRN Q30MIN PRN IV SEE COMMENTS; Start 04/17/18 at 10:15; Stop 04/17/18 at 19:33; Status DC Vancomycin HCl (Vanco Per Pharmacy) 1 each PRN DAILY PRN MC SEE COMMENTS Last administered on 04/20/18at 11:07; Start 04/17/18 at 10:15; Stop 04/20/18 at 13 :24; Status DC Piperacillin Sod/ Tazobactam Sod 3.375 gm/Sodium Chloride 50 ml @ 100 mls/hr Q6HRS IV Last administered on 04/21/18at 06:23; Start 04/17/18 at 18:00; Stop 04/21/18 at 09:48; Status DC Acetaminophen/ Hydrocodone Bitart (Lortab 5/325) 2 tab 1X ONCE PO Last administered on 04/17/18at 10:36; Start 04/17/18 at 10:30; Stop 04/17/18 at 10 :31; Status DC Vancomycin HCl 2 gm/Sodium Chloride 500 ml @ 250 mls/hr 1X ONCE IV Last administered on 04/17/18at 12:09; Start 04/17/18 at 10:45; Stop 04/17/18 at 12 :44; Status DC Piperacillin Sod/ Tazobactam Sod 4.5 gm/Sodium Chloride 100 ml @ 200 mls/hr 1X ONCE IV Last administered on 04/17/18at 11:27; Start 04/17/18 at 10:45; Stop 04/17/18 at 11:14; Status DC Iohexol (Omnipaque 300 Mg/ml) 75 ml 1X ONCE IV Last administered on at 10:45; Start 04/17/18 at 10:45; Stop 04/17/18 at 10:46; Status DC Info (CONTRAST GIVEN -- Rx MONITORING) 1 each PRN DAILY PRN MC SEE COMMENTS; Start 04/17/18 at 11:00; Stop 04/19/18 at 10:59; Status DC Ondansetron HCl (Zofran) 4 mg PRN Q8HRS PRN IV NAUSEA/VOMITING; Start at 12:30; Stop 04/18/18 at 12:29; Status DC Morphine Sulfate (Morphine Sulfate) 4 mg PRN Q2HR PRN IV PAIN Last administered on 04/17/18at 20:50; Start 04/17/18 at 12:30; Stop 04/18/18 at 12 :29; Status DC Acetaminophen (Tylenol) 650 mg PRN Q4HRS PRN PO FEVER; Start 04/17/18 at 12:30 ; Stop 04/18/18 at 12:29; Status DC Sodium Chloride 1,000 ml @ 125 mls/hr 1X ONCE IV ; Start 04/17/18 at 12:30; Stop 04/17/18 at 20:29; Status DC Propofol 20 ml @ As Directed STK-MED ONCE IV ; Start 04/17/18 at 12:43; Stop 04/17/18 at 12:44; Status DC Lidocaine HCl (Lidocaine Pf 2% Vial) 5 ml STK-MED ONCE .ROUTE ; Start 04/17/18 at 12:43; Stop 04/17/18 at 12:44; Status DC Fentanyl Citrate (Fentanyl 2ml Vial) 100 mcg STK-MED ONCE .ROUTE ; Start at 12:44; Stop 04/17/18 at 12:45; Status DC Rocuronium [place] (Zemuron) 50 mg STK-MED ONCE .ROUTE ; Start 04/17/18 at 12: 44; Stop 04/17/18 at 12:45; Status DC Fentanyl Citrate (Fentanyl 2ml Vial) 25 mcg PRN Q5MIN PRN IV MILD PAIN; Start 04/17/18 at 13:30; Stop 04/18/18 at 13:29; Status DC Fentanyl Citrate (Fentanyl 2ml Vial) 50 mcg PRN Q5MIN PRN IV MODERATE TO SEVERE PAIN; Start 04/17/18 at 13:30; Stop 04/18/18 at 13:29; Status DC Morphine Sulfate (Morphine Sulfate) 1 mg PRN Q10MIN PRN IV SEVERE PAIN; Start 04/17/18 at 13:30; Stop 04/18/18 at 13:29; Status DC Ringer's Solution 1,000 ml @ 30 mls/hr Q24H IV ; Start 04/17/18 at 13:29; Stop 04/18/18 at 01:28; Status DC Lidocaine HCl (Xylocaine-Mpf 1% 2ml Vial) 2 ml 1X PRN PRN ID IV START; Start 04/17/18 at 13:30; Stop 04/18/18 at 13:29; Status DC Hydromorphone HCl (Dilaudid) 0.5 mg PRN Q10MIN PRN IV SEV PAIN, Second choice; Start 04/17/18 at 13:30; Stop 04/18/18 at 13:29; Status DC Prochlorperazine Edisylate (Compazine) 5 mg PACU PRN PRN IV NAUSEA, MRX1; Start 04/17/18 at 13:30; Stop 04/18/18 at 13:29; Status DC Clindamycin Phosphate 50 ml @ 100 mls/hr Q8HRS IV Last administered on at 05:45; Start 04/17/18 at 14:00; Stop 04/21/18 at 09:48; Status DC Vancomycin HCl 1.25 gm/Sodium Chloride 250 ml @ 167 mls/hr Q12H IV Last administered on 04/20/18at 01:29; Start 04/18/18 at 00:00; Stop 04/20/18 at 13 :21; Status DC Vancomycin HCl (Vancomycin Trough Level) 1 each 1X ONCE MC Last administered on 04/17/18at 14:00; Start 04/17/18 at 14:00; Stop 04/17/18 at 14:01; Status DC Vancomycin HCl (Vancomycin Trough Level) 1 each 1X ONCE MC Last administered on 04/19/18at 01:45; Start 04/19/18 at 01:00; Stop 04/19/18 at 01:01; Status DC Potassium Chloride (Klor-Con) 40 meq 1X ONCE PO ; Start 04/17/18 at 15:00; Stop 04/17/18 at 15:01; Status DC Acetaminophen (Tylenol) 650 mg PRN Q6HRS PRN PO FEVER; Start 04/17/18 at 14:45 Ondansetron HCl (Zofran) 4 mg PRN Q6HRS PRN IV NAUSEA/VOMITING; Start at 14:45; Stop 04/18/18 at 15:50; Status DC Morphine Sulfate (Morphine Sulfate) 2 mg PRN Q2HR PRN IV MODERATE TO SEVERE PAIN Last administered on 04/21/18at 04:39; Start 04/17/18 at 14:45 Tramadol HCl (Ultram) 50 mg PRN Q6HRS PRN PO MILD TO MODERATE PAIN; Start at 14:45 Docusate Sodium (Colace) 100 mg PRN DAILY PRN PO CONSTIPATION Last administered on 04/18/18at 22:28; Start 04/17/18 at 14:45 Sodium Chloride 1,000 ml @ 100 mls/hr Q10H IV Last administered on 04/21/18at 04:41; Start 04/17/18 at 14:45 Oxycodone/ Acetaminophen (Percocet 5/325) 1 tab PRN Q4HRS PRN PO MODERATE PAIN Last administered on 04/20/18at 12:00; Start 04/17/18 at 15:00 Bupivacaine HCl/ Epinephrine Bitart (Sensorcain-Mpf Epi 0.5%-1:[id number]) 30 ml STK -MED ONCE .ROUTE ; Start 04/17/18 at 13:53; Stop 04/17/18 at 14:54; Status DC Dexamethasone Sodium Phosphate (Decadron) 20 mg STK-MED ONCE .ROUTE ; Start at 15:49; Stop 04/17/18 at 15:50; Status DC Sevoflurane (Ultane) 15 ml STK-MED ONCE IH ; Start 04/17/18 at 15:49; Stop at 15:50; Status DC Ondansetron HCl (Zofran) 4 mg STK-MED ONCE .ROUTE ; Start 04/17/18 at 15:50; Stop 04/17/18 at 15:51; Status DC Sodium Chloride 1,000 ml @ 1,980 mls/hr Q31M IV Last administered on at 15:34; Start 04/18/18 at 12:15; Stop 04/18/18 at 13:15; Status DC Heparin Sodium (Porcine) (Heparin Sodium) 5,000 unit Q8HRS SQ Last administered on 04/21/18at 13:41; Start 04/18/18 at 15:30 Ondansetron HCl (Zofran) 4 mg PRN Q6HRS PRN IV NAUSEA/VOMITING; Start at 15:15 Vitamin A/Vitamin D (Vitamin A & D Ointment) 1 aniya PRN Q1HR PRN TP SKIN PROTECTION Last administered on 04/20/18at 16:41; Start 04/18/18 at 16:00 Lactobacillus Rhamnosus (Culturelle) 1 cap BID PO Last administered on at 08:55; Start 04/18/18 at 21:00 Vancomycin HCl (Vancomycin Trough Level) 1 each 1X ONCE MC ; Start 04/24/18 at 13:30; Stop 04/24/18 at 13:30; Status DC Polyethylene Glycol (miraLAX PACKET) 17 gm DAILY PO Last administered on at 10:31; Start 04/19/18 at 10:00 Bisacodyl (Dulcolax Supp) 10 mg 1X ONCE SC Last administered on 04/19/18at 10: 31; Start 04/19/18 at 10:00; Stop 04/19/18 at 10:01; Status DC Linezolid (Zyvox) 600 mg BID PO Last administered on 04/21/18at 08:55; Start 04/20/18 at 14:00 Oxycodone/ Acetaminophen (Percocet 5/325) 2 tab PRN Q4HRS PRN PO MODERATE PAIN , SEVERE PAIN Last administered on 04/21/18at 13:38; Start 04/20/18 at 14:30 Active Scripts Active Azithromycin Tablet (Azithromycin) 250 Mg Tablet 1 Pkg PO UD Proair Hfa Inhaler (Albuterol Sulfate) 8.5 Gm Hfa.aer.ad 2 Puff INH PRN Q6HRS PRN Prednisone 20 Mg Tablet 2 Tab PO DAILY Vitals/I & O Vital Sign - Last 24 Hours 04/20/18 04/20/18 04/20/18 04/20/18 15:00 16:42 18:44 19:50 Temp 97.7 97.7 97.7 97.7 Pulse 76 69 Resp 18 16 B/P (MAP) 146/98 (114) 120/69 (86) Pulse Ox 99 97 O2 Delivery Room Air Room Air Room Air Room Air 04/20/18 04/20/18 04/20/18 04/20/18 19:56 20:57 21:55 23:26 Temp 98.1 98.1 Pulse 67 Resp 20 20 16 B/P (MAP) 119/66 (83) Pulse Ox 100 O2 Delivery Room Air Room Air Room Air Room Air 04/21/18 04/21/18 04/21/18 04/21/18 03:33 04:38 04:39 05:09 Temp 97.4 97.4 Pulse 59 Resp 16 20 20 20 B/P (MAP) 135/78 (97) Pulse Ox 100 O2 Delivery Room Air Room Air Room Air Room Air 04/21/18 04/21/18 04/21/18 04/21/18 05:38 07:00 07:40 11:00 Temp 98.0 97.6 98.0 97.6 Pulse 63 63 Resp 20 18 18 B/P (MAP) 130/93 (105) 125/76 (92) Pulse Ox 99 99 O2 Delivery Room Air Room Air Room Air Room Air 04/21/18 13:38 O2 Delivery Nasal Cannula Intake and Output 04/20/18 04/20/18 04/21/18 15:00 23:00 07:00 Intake Total 3540 ml Output Total 1400 ml Balance 2140 ml ARIANNA SWIFT III DO Apr 21, 2018 14:15
[2018-04-21] MEDS ORDERED: LINE600T PO ×2 (14:48→14:49)
[2018-04-21 15:00] VITALS: BP 126/75
== END 2018-04-21 15:08 | disposition home or self-care (01) | DRG 853 ==
LOC: ER 10:01 → EEVIPCON 12:06 → 4 NORTH 12:06
PROVIDERS: ADMIT Internal Medicine; ATTEND Internal Medicine
PROC: 0D9P0ZZ Drainage of Rectum, Open Approach (ICD-10-PCS; principal; 2018-04-17 16:00)
DX: A41.9 Sepsis, unspecified organism (principal); K65.1 Peritoneal abscess; L02.31 Cutaneous abscess of buttock; E44.1 Mild protein-calorie malnutrition; K61.1 Rectal abscess; L03.317 Cellulitis of buttock; E87.2 Acidosis; K59.00 Constipation, unspecified; E87.6 Hypokalemia; K42.9 Umbilical hernia without obstruction or gangrene; Z68.28 Body mass index [BMI] 28.0-28.9, adult; Z82.49 Family history of ischemic heart disease and other diseases of the circulatory system; Z79.899 Other long term (current) drug therapy
CPT/HCPCS: 36415; 74170; 80048; 80053; 80202; 82565; 83605; 84145; 85007; 85025; 85610; 85730; 87040; 87071; 87075; 87186; 96365; 96368; J1100; J1644; J2001; J2270; J2405; J2543; J2704; J3010; J3370; J3490; J7030; J7040; J7050; Q9967; 99285-25; A4461